=== PATIENT | female | born 1940 | race Caucasian/White ===

== ENCOUNTER → 2016-07-29 | Outpatient (CLI) | payer BC ==
[~2016-07-29] MED LIST: DIAZ-165 PO; DIPH-437 PO; LORA-763 PO; OXYC1TAB3 PO; PRED-301 PO; PRED20TA PO; TRAM-10 PO; VALA1TAB2 PO
[2016-08-01 15:51] LABS: ALBUMIN 3.5 G/DL (3.8-4.8); GAMMA GLOBULIN 0.5 G/DL (0.8-1.7); TOTAL PROTEIN 6.4 G/DL (6.2-8.3)
== END | disposition home or self-care (01) ==
LOC: C.LAB1850 08:58
PROVIDERS: ATTEND Internal Medicine Rheumatology
DX: M35.3 Polymyalgia rheumatica (principal); R70.0 Elevated erythrocyte sedimentation rate; T38.0X1A Poisoning by glucocorticoids and synthetic analogues, accidental (unintentional), initial encounter; E55.9 Vitamin D deficiency, unspecified; E61.8 Deficiency of other specified nutrient elements

== ENCOUNTER → 2016-08-05 | Outpatient (CLI) | payer BC | END | disposition home or self-care (01) | LOC: C.LAB1850 11:50 | PROVIDERS: ATTEND Internal Medicine Rheumatology | DX: M35.3 Polymyalgia rheumatica (principal); T38.0X1A Poisoning by glucocorticoids and synthetic analogues, accidental (unintentional), initial encounter; R77.8 Other specified abnormalities of plasma proteins; E61.8 Deficiency of other specified nutrient elements; E55.9 Vitamin D deficiency, unspecified ==

== ENCOUNTER → 2016-08-30 | Outpatient (CLI) | payer BC | END | disposition home or self-care (01) | LOC: C.MAMM 14:25 | PROVIDERS: ATTEND Internal Medicine Rheumatology | DX: M35.3 Polymyalgia rheumatica (principal); R70.0 Elevated erythrocyte sedimentation rate; T38.0X1A Poisoning by glucocorticoids and synthetic analogues, accidental (unintentional), initial encounter; E55.9 Vitamin D deficiency, unspecified; E61.8 Deficiency of other specified nutrient elements; M81.0 Age-related osteoporosis without current pathological fracture ==

== ENCOUNTER 2016-09-11 10:34 | Emergency (ER) | payer BC ==
[~2016-09-11] VITALS: Ht 156.2 cm; Wt 70.2 kg
[~2016-09-11 10:34] MED LIST changes: -DIAZ-165 PO; -OXYC1TAB3 PO; -PRED-301 PO; -PRED20TA PO; -TRAM-10 PO; -VALA1TAB2 PO
[2016-09-11 10:50] VITALS: TEMP 36.6; Ht 156.2 cm; Wt 70.2 kg
[2016-09-11] MEDS ORDERED: PRED-301 PO (11:19)
[2016-09-11] MEDS ORDERED: PRED20TA PO (11:19)
[2016-09-11] MEDS ORDERED: SODIUM CHLORIDE 0.9% 500ML 500 ML IV STA (12:10)
[2016-09-11] MEDS ORDERED: SODIUM CHLORIDE 0.9% 1000ML 1,000 ML IV STA (12:10)
[2016-09-11] MEDS ORDERED: ACETAMINOPHEN IV 650 MG in EMPTY BAG 0 ML IV ONE (12:15)
[2016-09-11] MEDS ORDERED: ACETAMINOPHEN 1000 MG/100 ML IV IV ONE (12:24)
--- NOTE | 2016-09-11 12:35 | EMERGENCY ROOM VISIT NOTE ---
History Report prepared by Jez: Sonal Smith Under the Supervision of: Dr. Karon Constantino M.D. First contact with patient: 11:47 Chief Complaint: BACK PAIN Stated Complaint: BACKACHE, CRAMPS History of Present Illness The patient is a 76 year old female who presents to the Emergency Room with complaints of intermittent lower back pain that started 3 days ago. The pain is worse on the left side of her back. She states that the pain is worse when lying flat. She describes the pain has an ache. The patient is also experiencing left-sided abdominal pain. The patient states that she typically has regular daily bowel movements. She states that her bowel movements are like "clockwork" and she doesn't usually have to strain when she goes. The patient states that she did not have a bowel movement 3 days ago or 2 days ago, which she thinks may be due to eating a banana before taking her medicine one morning. The patient states that she does not typically eat bananas. She drank milk of magnesia, apple juice, and prune juice yesterday and had a loose bowel movement afterward. The patient states that the bowel movement consisted of a lot of loose stool. She states that she had 2-3 bowel movements yesterday. The patient states that she is urinating normally and she denies any hematuria. She denies nausea, vomiting, rectal pain, and rectal bleeding. The patient states that she has polymyalgia rheumatica (PMR) and she is on 20 mg of prednisone in the morning and 5 mg at night. The patient states that she started prednisone 1 month ago. The patient adds that she might have pulled something when getting into her car the other day, but she is not convinced that is what is causing her pain. The patient denies any recent falls. The patient has never had a colonoscopy. Source of History: patient Onset: 3 days ago Position: back (lower) Quality: ache Timing: intermittent Modifying Factors (Worsening): other (lying flat) Associated Symptoms: + abdominal pain (left-sided), No nausea, No vomiting, No urinary symptoms (trouble urinating, hematuria) Note: no rectal pain, no rectal bleeding Review of Systems See HPI for pertinent positives & negatives. A total of 10 systems reviewed and were otherwise negative. Past Medical & Surgical Medical Problems: (1) Seasonal allergies Surgical Problems: (1) History of Family History Hypertension Social History Smoking Status: Former Smoker Drug Use: none Marital Status: Housing Status: lives alone Occupation Status: retired Current/Historical Medications Scheduled Prednisone (Prednisone), 5 MG PO QPM Prednisone (Prednisone), 20 MG PO QAM Scheduled PRN Tramadol (Ultram), 1 TABS PO Q6 PRN for Pain Allergies Coded Allergies: Magnesium (Unverified Allergy, Unknown, UNKNOWN, 09/11/16) Penicillins (Unverified Allergy, Unknown, UNKNOWN, 09/11/16) Sulfa Antibiotics (Unverified Adverse Reaction, Unknown, NAUSEA, 09/11/16) Physical Exam Vital Signs Date Time Temp Pulse Resp B/P (MAP) Pulse Ox O2 Delivery O2 Flow Rate FiO2 09/11/16 14:02 78 18 149/76 96 09/11/16 10:50 36.6 87 18 155/74 93 Room Air Physical Exam Vital signs reviewed. General: Well-appearing elderly female, in no significant distress. HEENT: No scleral icterus, PERRLA, neck supple. Atraumatic. Cardiovascular: Regular rate and rhythm, no extra sounds. Pulmonary: Clear to auscultation bilaterally, normal work of breathing. Abdomen: Soft, minimal left lower quadrant tender, nondistended, no rebound, no guarding, positive bowel sounds. Musculoskeletal: Atraumatic, minimal reproduction of tenderness to left flank above iliac crest, significant discomfort when lying flat, no peripheral edema. Neurologic: Patient awake alert and oriented x 3. Skin: Warm, dry, no rash Medical Decision & Procedures ER Provider Diagnostic Interpretation: CT results as stated below per my review and radiologist interpretation: ABDOMEN AND PELVIS CT WITHOUT CONTRAST FINDINGS: No renal or ureteral stones. No hydronephrosis. Mild bladder wall thickening which could be due to underdistention. The uterus and bilateral adnexa are unremarkable. Suboptimal evaluation for bowel pathology due to the lack of intravenous and oral contrast. However, there is no definite bowel wall thickening or obstruction. Mild elevation of the left hemidiaphragm. Colonic diverticulosis. Normal appendix. There is an acute superior endplate compression fracture at L2 demonstrating minimal loss of height. No associated retropulsion. A few sacral Tarlov cysts. A 1.3 cm hypodense lesion within the right hepatic lobe. This is incompletely characterize on this noncontrast study but favors a cyst. The gallbladder, spleen, and adrenal glands are unremarkable. A 6.4 cm cyst within the upper pole the right kidney. Normal pancreas. No retroperitoneal lymphadenopathy. IMPRESSION: 1. No renal stones or hydronephrosis. 2. Mild bladder wall thickening which could be due to underdistention. Recommend correlation with urinalysis. 3. An acute superior endplate compression fracture at L2 demonstrating minimal loss of height. Electronically signed by: Kiran Chaudhry M.D. 09/11/2016 1:07 PM Dictated Date/Time: 09/11/2016 12:59 PM Laboratory Results 09/11/16 12:25 Red Blood Count 4.73, Mean Corpuscular Volume 95.6, Mean Corpuscular Hemoglobin 31.3, Mean Corpuscular Hemoglobin Concent 32.7, Mean Platelet Volume 9.4, Neutrophils (%) (Auto) 92.3, Lymphocytes (%) (Auto) 3.1, Monocytes (%) (Auto) 3.6, Eosinophils (%) (Auto) 0.0, Basophils (%) (Auto) 0.0, Neutrophils # (Auto) 12.07, Lymphocytes # (Auto) 0.41, Monocytes # (Auto) 0.47, Eosinophils # (Auto) 0.00, Basophils # (Auto) 0.00 09/11/16 12:25 Test 09/11/16 11:45 09/11/16 12:25 Urine Color DK YELLOW Urine Appearance CLEAR (CLEAR) Urine pH 6.5 (4.5-7.5) Urine Specific [place] 1.021 (1.000-1.030) Urine Protein NEG (NEG) Urine Glucose (UA) NEG (NEG) Urine Ketones 1+ (NEG) Urine Occult Blood NEG (NEG) Urine Nitrite NEG (NEG) Urine Bilirubin NEG (NEG) Urine Urobilinogen NEG (NEG) Urine Leukocyte Esterase TRACE (NEG) Urine WBC (Auto) 1-5 /hpf (0-5) Urine RBC (Auto) 5-10 /hpf (0-4) Urine Hyaline Casts (Auto) 1-5 /lpf (0-5) Urine Epithelial Cells (Auto) >30 /lpf (0-5) Urine Bacteria (Auto) NEG (NEG) White Blood Count 13.08 K/uL (4.8-10.8) Red Blood Count 4.73 M/uL (4.2-5.4) Hemoglobin 14.8 g/dL (12.0-16.0) Hematocrit 45.2 % (37-47) Mean Corpuscular Volume 95.6 fL (80-100) Mean Corpuscular Hemoglobin 31.3 pg (25-34) Mean Corpuscular Hemoglobin Concent 32.7 g/dl (32-36) Platelet Count 331 K/uL (130-400) Mean Platelet Volume 9.4 fL (7.4-10.4) Neutrophils (%) (Auto) 92.3 % Lymphocytes (%) (Auto) 3.1 % Monocytes (%) (Auto) 3.6 % Eosinophils (%) (Auto) 0.0 % Basophils (%) (Auto) 0.0 % Neutrophils # (Auto) 12.07 K/uL (1.4-6.5) Lymphocytes # (Auto) 0.41 K/uL (1.2-3.4) Monocytes # (Auto) 0.47 K/uL (0.11-0.59) Eosinophils # (Auto) 0.00 K/uL (0-0.5) Basophils # (Auto) 0.00 K/uL (0-0.2) RDW Standard Deviation 53.9 fL (36.4-46.3) RDW Coefficient of Variation 15.5 % (11.5-14.5) Immature Granulocyte % (Auto) 1.0 % Immature Granulocyte # (Auto) 0.13 K/uL (0.00-0.02) Anion Gap 9.0 mmol/L (3-11) Est Creatinine Clear Calc Drug Dose 49.7 ml/min Estimated GFR () 73.0 Estimated GFR (Non- 63.0 BUN/Creatinine Ratio 14.0 (10-20) Calcium Level 9.0 mg/dl (8.5-10.1) Total Bilirubin 0.7 mg/dl (0.2-1) Direct Bilirubin 0.2 mg/dl (0-0.2) Aspartate Amino Transf (AST/SGOT) 18 U/L (15-37) Alanine Aminotransferase (ALT/SGPT) 31 U/L (12-78) Alkaline Phosphatase 94 U/L (45-117) Total Protein 7.3 gm/dl (6.4-8.2) Albumin 3.7 gm/dl (3.4-5.0) Laboratory results per my review. Medications Administered Medications (Trade) Dose Ordered Sig/Ban Route Start Time Stop Time Status Last Admin Dose Admin Sodium Chloride 500 ml @ 999 mls/hr Q31M STAT IV 09/11/16 12:10 09/11/16 12:40 DC 09/11/16 12:28 999 MLS/HR Sodium Chloride 1,000 ml @ 125 mls/hr Q8H STAT IV 09/11/16 12:10 09/11/16 14:36 DC 09/11/16 12:40 125 MLS/HR Acetaminophen 650 mg/Empty Bag 65 ml @ 260 mls/hr NOW ONCE IV 09/11/16 12:15 09/11/16 12:29 DC 09/11/16 12:37 260 MLS/HR ED Course 1204: Past medical records reviewed. The patient was evaluated in room A10. A complete history and physical examination was performed. 1210: Ordered Sodium Chloride 1000 ml @ 125 mls/hr IV, Sodium Chloride 500 ml @ 999 mls/hr IV 1215: Ordered Acetaminophen 650 mg/Empty Bag 65 ml @ 260 mls/hr IV 1354: Upon reevaluation, the patient appeared to have improvement of her symptoms. I discussed findings with her. She verbalized agreement of the treatment plan. She was discharged home. Medical Decision Differentials include renal colic, appendicitis, diverticulitis, mesenteric ischemia, aortic pathology, infections, inflammatory bowel disease, PUD, biliary pathology, UTI. Medication Reconciliation: I attest that I have personally reviewed the patient' s current medication list. Blood Pressure Screening: Patient was found to have an elevated blood pressure and was referred to their primary doctor for recheck and further treatment. This patient was evaluated and appeared to be in no significant distress. IV access was obtained and laboratory work was drawn. The patient was placed on the record label internship and found to be in a normal sinus rhythm. She was medicated with IV Tylenol. CT scan was performed of the abdomen and pelvis which is significant for an L2 compression fracture. There is no significant loss of height, there is a superior endplate deformity. Urinalysis is negative. I suspect this is the etiology of the patient's discomfort, it may be a radiculopathy. The patient was discharged with a prescription for when necessary Ultram. She will follow-up with her physician as well as orthopedic spine for reevaluation. She will return to the ER for worsening of symptoms or any medical concerns. Impression Primary Impression: Compression fracture of L2 Scribe Attestation The scribe's documentation has been prepared under my direction and personally reviewed by me in its entirety. I confirm that the note above accurately reflects all work, treatment, procedures, and medical decision making performed by me. Departure Information Dispostion Home / Self-Care Prescriptions Tramadol (Ultram) 50 Mg Tab 1 TABS PO Q6 Y for Pain, #20 TAB Prov: Karon Constantino M.D. 09/11/16 Referrals No Doctor, Assigned (PCP) Forms HOME CARE DOCUMENTATION FORM, IMPORTANT VISIT INFORMATION Patient Instructions [facility] Additional Instructions Diagnosis: L2 compression fracture Tylenol 650 mg every 6 hours as needed for pain. Ultram 50 mg every 6 hours as needed for more severe pain. Follow-up with your primary care physician and he will likely require evaluation by orthopedic spine, Dr. Campbell. Please see his information below. Return to the emergency department for worsening of symptoms or any medical concerns. Problem Qualifiers Primary Impression: Compression fracture of L2 Encounter type: initial encounter Fracture type: closed Qualified Codes: S32.020A - Wedge compression fracture of second lumbar vertebra, initial encounter for closed fracture
[2016-09-11 12:55] LABS: COMPLETE YES; HEMATOCRIT 45.2 % (37-47); LYMPH % 3.1 %; LYMPH ABS # 0.41 K/uL (1.2-3.4); MEAN CELL VOLUME 95.6 fL (80-100); MEAN CORPUSCULAR HEMOGLOBIN 31.3 pg (25-34); MEAN CORPUSCULAR HGB CONC 32.7 g/dl (32-36); MEAN PLATELET VOLUME 9.4 fL (7.4-10.4); MONO % 3.6 %; NEUT % 92.3 %; PLATELET COUNT 331 K/uL (130-400); RED BLOOD COUNT 4.73 M/uL (4.2-5.4); WHITE BLOOD COUNT 13.08 K/uL (4.8-10.8)
[2016-09-11 12:58] LABS: URINE APPEARANCE CLEAR (CLEAR); URINE COLOR DK YELLOW; URINE EPITHELIAL CELL AUTO >30 /lpf (0-5); URINE NITRITE NEG (NEG); URINE PH 6.5 (4.5-7.5); URINE SPECIFIC GRAVITY 1.021 (1.000-1.030); UROBILINOGEN NEG (NEG); ZZUR CULT IF INDIC CLEAN CATCH NO
[2016-09-11 13:04] LABS: CREATININE 0.9 mg/dl (0.60-1.20)
[2016-09-11 13:06] LABS: MANUAL MICROSCOPIC REQUIRED? NO; REVIEW REQ? NO; URINE BILIRUBIN NEG (NEG)
--- NOTE | 2016-09-11 13:08 | DIAGNOSTIC IMAGING REPORT ---
ABDOMEN AND PELVIS CT WITHOUT CONTRAST CT DOSE: 325.79 mGy.cm HISTORY: Left flank pain, stone TECHNIQUE: Multiaxial CT images of the abdomen and pelvis were performed without contrast. COMPARISON STUDY: None. FINDINGS: No renal or ureteral stones. No hydronephrosis. Mild bladder wall thickening which could be due to underdistention. The uterus and bilateral adnexa are unremarkable. Suboptimal evaluation for bowel pathology due to the lack of intravenous and oral contrast. However, there is no definite bowel wall thickening or obstruction. Mild elevation of the left hemidiaphragm. Colonic diverticulosis. Normal appendix. There is an acute superior endplate compression fracture at L2 demonstrating minimal loss of height. No associated retropulsion. A few sacral Tarlov cysts. A 1.3 cm hypodense lesion within the right hepatic lobe. This is incompletely characterize on this noncontrast study but favors a cyst. The gallbladder, spleen, and adrenal glands are unremarkable. A 6.4 cm cyst within the upper pole the right kidney. Normal pancreas. No retroperitoneal lymphadenopathy. IMPRESSION: 1. No renal stones or hydronephrosis. 2. Mild bladder wall thickening which could be due to underdistention. Recommend correlation with urinalysis. 3. An acute superior endplate compression fracture at L2 demonstrating minimal loss of height. Electronically signed by: Kiran Chaudhry M.D. 09/11/2016 1:07 PM Dictated Date/Time: 09/11/2016 12:59 PM
[2016-09-11] MEDS ORDERED: TRAM-10 PO (13:39)
[2016-09-11 14:02] VITALS: BP 149/76; PULSE 78; O2SAT 96
== END 2016-09-11 14:04 | disposition home or self-care (01) ==
LOC: C.EDB 10:35 → C.EDA 14:04
DX: M48.56XA Collapsed vertebra, not elsewhere classified, lumbar region, initial encounter for fracture (principal); Z87.891 Personal history of nicotine dependence; Z88.0 Allergy status to penicillin; Z88.2 Allergy status to sulfonamides; Z88.8 Allergy status to other drugs, medicaments and biological substances; Z82.49 Family history of ischemic heart disease and other diseases of the circulatory system

== ENCOUNTER 2016-09-13 10:17 | Emergency (ER) | payer BC ==
[~2016-09-13] VITALS: Ht 156.2 cm; Wt 70.0 kg
[~2016-09-13 10:17] MED LIST changes: -DIPH-437 PO; -LORA-763 PO; +PRED-301 PO; +PRED20TA PO; +TRAM-10 PO
[2016-09-13 10:23] VITALS: BP 166/82; PULSE 97; TEMP 36.7; O2SAT 92; Ht 156.2 cm; Wt 70.0 kg
[2016-09-13] MEDS ORDERED: OXYC1TAB3 PO (11:30)
[2016-09-13] MEDS ORDERED: VALA1TAB2 PO (11:30)
--- NOTE | 2016-09-13 11:33 | EMERGENCY ROOM VISIT NOTE ---
History Report prepared by Jez: Bere Munson Under the Supervision of: Dr. Zaire Grace M.D. First contact with patient: 10:49 Chief Complaint: BACK PAIN Stated Complaint: BACK PAIN History of Present Illness The patient is a 76 year old female who presents to the Emergency Room with complaints of an episode of back pain starting a few days ago. She reports that she came to the ED two days ago and had a CT scan performed. She states that they found a compression fracture. The patient reports that Tylenol is no relief. She reports that the pain is in her hips and buttocks. The patient reports that standing and using a heating pad helps relieve the pain. She reports that sitting makes the pain worse. She denies pain in her legs, urinary symptoms, and weakness. The patient notes a history of sciatica. Source of History: patient Onset: few days ago Position: back Timing: other (episode) Modifying Factors (Worsening): other (sitting) Modifying Factors (Relieving): heat, other (standing) Associated Symptoms: No urinary symptoms, No weakness Note: The patient complains of the pain in her hips and buttocks. The patient denies pain in her legs. Review of Systems See HPI for pertinent positives & negatives. A total of 10 systems reviewed and were otherwise negative. Past Medical & Surgical Medical Problems: (1) Sciatica (2) Seasonal allergies Surgical Problems: (1) History of Family History Hypertension Social History Smoking Status: Former Smoker Drug Use: none Marital Status: Housing Status: lives alone Occupation Status: retired Current/Historical Medications Scheduled Prednisone (Prednisone), 5 MG PO QPM Prednisone (Prednisone), 20 MG PO QAM Valacyclovir Hcl (Valtrex), 1,000 MG PO TID Scheduled PRN Oxycodone Immediate Rel Tab (Roxicodone Ir), 1-2 TAB PO Q4H PRN for Severe Pain Allergies Coded Allergies: Vitamin D (Unverified Allergy, Severe, VOMITING, 09/13/16) Magnesium (Unverified Allergy, Unknown, UNKNOWN, 09/13/16) Penicillins (Unverified Allergy, Unknown, UNKNOWN, 09/13/16) Sulfa Antibiotics (Unverified Adverse Reaction, Unknown, NAUSEA, 09/13/16) Physical Exam Vital Signs Date Time Temp Pulse Resp B/P (MAP) Pulse Ox O2 Delivery O2 Flow Rate FiO2 09/13/16 10:23 36.7 97 18 166/82 92 Room Air Physical Exam GENERAL: Patient is uncomfortable appearing and in mild distress. HEENT: No acute trauma, normocephalic atraumatic, mucous membranes moist, no nasal congestion, no scleral icterus. NECK: No stridor, no adenopathy, no meningismus, trachea is midline. LUNGS: No dyspnea. Clear to auscultation and equal bilaterally. No wheeze, no rhonchi. HEART: Regular rate and rhythm. No murmurs, rubs, gallops appreciated. ABDOMEN: Soft, nontender, bowel sounds positive, no masses appreciated, no peritonitis. BACK: No midline tenderness, no CVA tenderness EXTREMITIES: Normal motion all extremities, no cyanosis, no edema. NEUROLOGIC: Alert and oriented, no acute motor or sensory deficits, no focal weakness, cranial nerves grossly intact. SKIN: no jaundice, no diaphoresis, dermatomal blistering from lumbar spine midline to left extending over left buttock, does not involve genital region, has areas of scratching of mid lumbar spine. Medical Decision & Procedures Medications Administered Medications (Trade) Dose Ordered Sig/Ban Route Start Time Stop Time Status Last Admin Dose Admin Valacyclovir HCl (Valtrex Tab) 1,000 mg NOW ONCE PO 09/13/16 11:15 09/13/16 11:16 DC 09/13/16 11:13 1,000 MG ED Course 1050: The patient was evaluated in room C6. A complete history and physical exam was performed. 1115: Ordered Valtrex Tab 1000 mg PO. 1143: Reevaluated the patient. Discussed results and discharge instructions: She verbalized understanding and agreement. The patient is ready for discharge. Medical Decision Medication Reconciliation: I attest that I have personally reviewed the patient 's current medication list. Blood pressure screening: Patient was found to have an elevated blood pressure and was referred to their primary doctor for recheck and further treatment. Differential: Musculoskeletal, Disc Herniation, Fracture, Cord Compression, Discitis, Infectious, Aortic Pathology, Renal Colic, UTI/Pyelonephritis, Acute Exacerbation of Chronic Pain, Sciatica, Cauda Equina, Shingles amongst other pathologies entertained. 76 yr old female arrives with left low back pain radiating to buttock. Ongoing last few days. She has no neuro deficits, ambulates without difficulty and denies urinary/bowel control issues. She by exam has small areas of blistering very much looking like early shingles across low left back and left buttock. Does not cross midline nor does it involve region. She by examination and her story has acute shingles. She is not convinced that rash is not just kong from heating pad, though they do not have typical appearance of contact dermatitis nor thermal burn. That said, treatment in patient is Valtrex and pain medications. I would not increase her typical 20mg Prednisone at this time given concern this is shingles. She does not have systemic symptoms. She is leaning towards having Emergent MRI done, however she does not at this time meet criteria and I counseled her my concern of as study like this not being covered. She understands and agrees with plan to monitor as outpatient. Of note, review of labs from a few days ago reveals normal renal function. Patient understands symptoms requiring immediate return. I advised she follow up with PCP to discuss rash, pain, and HTN in very near future. Impression Primary Impression: Shingles Additional Impression: Low back pain Scribe Attestation The scribe's documentation has been prepared under my direction and personally reviewed by me in its entirety. I confirm that the note above accurately reflects all work, treatment, procedures, and medical decision making performed by me. Departure Information Dispostion Home / Self-Care Prescriptions Valacyclovir Hcl (VALTREX) 1 Gm Tab 1000 MG PO TID for 7 Days, #21 TAB Prov: Zaire Grace M.D. 09/13/16 Oxycodone Immediate Rel Tab (ROXICODONE IR) 5 Mg Tab 1-2 TAB PO Q4H Y for Severe Pain, #20 TAB Prov: Zaire Grace M.D. 09/13/16 Referrals Jonelle Samuels C.R.N.P. (PCP) Forms HOME CARE DOCUMENTATION FORM, IMPORTANT VISIT INFORMATION Patient Instructions [facility] Additional Instructions You have received a narcotic pain medication prescription. These medications may cause drowsiness and should not be used with other sedative medications. Do not drive, drink alcohol, perform dangerous activities, nor make important decisions after taking these medications. FPC use or inappropriate use may lead to addiction. These medications may cause constipation. It is very important that you follow up with your primary care provider to have repeat evaluation in the next few days to review if this is worsening or not and whether MRI indicated. Return if worsening pain, weakness in legs, loss of bowel/bladder control or other concerns. Problem Qualifiers
== END 2016-09-13 11:43 | disposition home or self-care (01) ==
LOC: C.EDB 10:19 → C.EDC 11:43
DX: B02.9 Zoster without complications (principal); M54.5 Low back pain; M54.40 Lumbago with sciatica, unspecified side; Z87.891 Personal history of nicotine dependence

== ENCOUNTER → 2016-09-19 | Outpatient (CLI) | payer BC ==
[~2016-09-19] MED LIST changes: +DIAZ-165 PO; +OXYC1TAB3 PO; -TRAM-10 PO; +VALA1TAB2 PO
--- NOTE | 2016-09-19 10:13 | DIAGNOSTIC IMAGING REPORT ---
LUMBAR SPINE MIN 4 VIEWS CLINICAL HISTORY: Lower back pain. COMPARISON: CT of the abdomen and pelvis September 11, 2016. FINDINGS: Mild loss of height of the superior endplate of L2 is similar to CT of September 11, 2016. This suggests an acute to subacute compression fracture. No additional compression fractures are present. There is mild multilevel degenerative disc disease and moderate multilevel facet arthrosis. IMPRESSION: 1. Mild L2 compression fracture which is similar to CT of September 11, 2016 and is likely acute to subacute. 2. Mild to moderate multilevel degenerative disc disease and facet arthrosis. Electronically signed by: Tristan Desai M.D. 09/19/2016 10:12 AM Dictated Date/Time: 09/19/2016 10:10 AM
== END | disposition home or self-care (01) ==
LOC: C.RDSM 12:02
PROVIDERS: ATTEND Family Medicine
DX: M51.36 Other intervertebral disc degeneration, lumbar region (principal); M48.56XA Collapsed vertebra, not elsewhere classified, lumbar region, initial encounter for fracture

== ENCOUNTER → 2016-09-29 | Outpatient (CLI) | payer BC ==
[~2016-09-29] MED LIST changes: -DIAZ-165 PO; -VALA1TAB2 PO
--- NOTE | 2016-09-29 09:50 | DIAGNOSTIC IMAGING REPORT ---
LUMBAR SPINE W/O CONTRAST HISTORY:76 yearsFemaleLOW BACK PAIN LATEX ALLERGY COMPARISON: Lumbar spine radiographs 09/19/2016, abdomen and pelvis CT 09/11/2016. TECHNIQUE: Axial and sagittal T1 and T2 noncontrast images of the lumbar spine were obtained. FINDINGS: 20% anterior endplate compression deformity of the L2 vertebral body is again seen with a linear fracture line of decreased T1 and increased T2/STIR signal best seen on image 8 of the sagittal STIR sequence. There is no significant retropulsion. The morphology of the vertebral body appears to be unchanged from comparison lumbar spine radiographs dated 09/19/[address] study dated 09/11/2016. This appears to be subacute in nature. No additional compression deformities are identified. Multiple Schmorl's nodes and endplate spurring is noted in conjunction with facet arthrosis intervertebral disc space narrowing. The conus medullaris terminates at the L1-L2 level. There is a suggested perineural root sleeve cyst level of the mid sacrum not imaged on the axial set measuring up to 1.4 x 4.0 cm in AP and craniocaudal dimensions respectively. The imaged intra-abdominal, intrapelvic and paraspinal structures demonstrate no gross abnormal. There appears to be an extrarenal pelvis on the left. T12-L1: No central canal or neuroforaminal narrowing on the sagittal imaging alone. L1-L2: Small circumferential annular disc bulge with spondylitic spurring and facet arthropathy. No central canal or foraminal narrowing. L2-L3: Circumferential annular disc bulge with posterior spondylitic spurring and moderate facet arthropathy causes mild central canal and mild right foraminal narrowing. The left neuroforamen appears patent. L3-L4: Broad-based posterior disc bulge with spondylitic spurring, ligamentum flavum redundancy and moderate to severe facet arthrosis causes mild to moderate central canal and mild bilateral foraminal narrowing. L4-L5: Disc desiccation, intervertebral disc space narrowing, ligamentum flavum redundancy and mild to moderate facet arthrosis without central canal or foraminal narrowing. L5-S1: Moderate intervertebral disc space narrowing with posterior spondylitic spurring and facet arthrosis is present conjunction with a broad-based left foraminal and extraforaminal disc protrusion which causes moderate left foraminal narrowing. The central canal and right foramen appear patent. IMPRESSION: 1. Subacute compression fracture of the L2 vertebral body is again seen involving the superior endplate causing approximately 20% compression anteriorly. No significant retropulsion or high-grade central canal narrowing. 2. Multilevel discogenic degeneration and facet arthrosis as above. Findings are most pronounced at the L3-L4 level where there is resultant mild to moderate central canal and mild bilateral foraminal narrowing. 3. At L2-L3 there is mild central canal and mild right foraminal stenosis. The above report was generated using voice recognition software. It may contain grammatical, syntax or spelling errors. Electronically signed by: Clyde Szymanski 09/29/2016 9:48 AM Dictated Date/Time: 09/29/2016 9:35 AM
== END | disposition home or self-care (01) ==
LOC: C.MRIBC 08:43
PROVIDERS: ATTEND Family Medicine
DX: M48.06 Spinal stenosis, lumbar region (principal); M48.56XA Collapsed vertebra, not elsewhere classified, lumbar region, initial encounter for fracture

== ENCOUNTER → 2016-10-03 | Outpatient (CLI) | payer BC | END | disposition home or self-care (01) | LOC: C.LAB1850 13:46 | PROVIDERS: ATTEND Internal Medicine Rheumatology | DX: M35.3 Polymyalgia rheumatica (principal); T38.0X1A Poisoning by glucocorticoids and synthetic analogues, accidental (unintentional), initial encounter; X58.XXXA Exposure to other specified factors, initial encounter; E55.9 Vitamin D deficiency, unspecified ==

== ENCOUNTER → 2016-10-31 | Outpatient (CLI) | payer BC | END | disposition home or self-care (01) | LOC: C.LAB1850 12:07 | PROVIDERS: ATTEND Internal Medicine Rheumatology | DX: M35.3 Polymyalgia rheumatica (principal); T38.0X1A Poisoning by glucocorticoids and synthetic analogues, accidental (unintentional), initial encounter; E55.9 Vitamin D deficiency, unspecified; Z79.52 Long term (current) use of systemic steroids ==

== ENCOUNTER → 2016-12-06 | Outpatient (CLI) | payer BC | END | disposition home or self-care (01) | LOC: C.LAB1850 12:11 | PROVIDERS: ATTEND Internal Medicine Rheumatology | DX: M35.3 Polymyalgia rheumatica (principal); T38.0X1A Poisoning by glucocorticoids and synthetic analogues, accidental (unintentional), initial encounter; Z79.52 Long term (current) use of systemic steroids ==

== ENCOUNTER 2017-01-10 10:03 | Emergency (ER) | payer BC ==
[~2017-01-10] VITALS: Ht 154.9 cm; Wt 74.1 kg
[2017-01-10 10:08] VITALS: TEMP 36.6; Ht 154.9 cm; Wt 74.1 kg
[2017-01-10] MEDS ORDERED: ACETAMINOPHEN 500 MG TAB PO STA (10:24)
--- NOTE | 2017-01-10 10:30 | EMERGENCY ROOM VISIT NOTE ---
History Report prepared by Jez: Lian Carney Under the Supervision of: Dr. Charlie Scott M.D. First contact with patient: 10:18 Chief Complaint: BACK PAIN Stated Complaint: BACK SPASM History of Present Illness The patient is a 76 year old female who presents to the Emergency Room with complaints of persistent diffuse back pain that began three days ago. She currently rates her discomfort as a 10/10 in severity. The patient states that five months ago she was diagnosed with Polymyalgia Rheumatica and Arthritis, noting that she has been on high doses of steroids recently. The patient states that Monday evening she developed a tightness in her back. She states that she woke up in the morning with worsened pain. The patient states that she felt like she slept on her back wrong. She states that she then began developing back spasms. The patient states that her pain is worsened with walking. She states that she has a history of sciatica. The patient states that she has tried using Ibuprofen and Naproxen for her discomfort, noting that Ibuprofen helped alleviate her symptoms more. She denies any recent fall, fever , or urinary symptoms. Source of History: patient Onset: three days ago Position: back (diffuse) Symptom Intensity: 10/10 Quality: other (tightness, spasm) Timing: other (persistent) Modifying Factors (Worsening): other (walking) Associated Symptoms: No fevers, No urinary symptoms Review of Systems See HPI for pertinent positives & negatives. A total of 10 systems reviewed and were otherwise negative. Past Medical & Surgical Medical Problems: (1) Sciatica (2) Seasonal allergies Surgical Problems: (1) History of Family History Hypertension Social History Smoking Status: Former Smoker Drug Use: none Marital Status: Housing Status: lives alone Occupation Status: retired Current/Historical Medications Scheduled Prednisone (Prednisone), 12.5 MG PO DAILY Scheduled PRN Diazepam (Valium), 5 MG PO Q6H PRN for Muscle Spasms Allergies Coded Allergies: Vitamin D (Unverified Allergy, Severe, VOMITING, 01/10/17) Magnesium (Unverified Allergy, Unknown, UNKNOWN, 01/10/17) Penicillins (Unverified Allergy, Unknown, UNKNOWN, 01/10/17) Sulfa Antibiotics (Unverified Adverse Reaction, Unknown, NAUSEA, 01/10/17) Physical Exam Vital Signs Date Time Temp Pulse Resp B/P (MAP) Pulse Ox O2 Delivery O2 Flow Rate FiO2 01/10/17 11:56 89 20 113/77 98 Room Air 01/10/17 10:08 36.6 100 20 162/99 94 Room Air Physical Exam GENERAL: Patient is in no acute distress. HEENT: No acute trauma, normocephalic atraumatic, mucous membranes moist, no nasal congestion, no scleral icterus. NECK: No stridor, no adenopathy, no meningismus, trachea is midline. LUNGS: Clear to auscultation bilaterally, no wheeze, no rhonchi, breath sounds equal. HEART: Without murmurs gallops or rubs, regular rate and rhythm. ABDOMEN: Soft, nontender, bowel sounds positive, no hernias, no peritonitis. BACK: Tender diffusely in the lumbar area, but primarily over the right lumbar musculature, no gabriela step-off. EXTREMITIES: No cyanosis or edema, full range of motion of all the joints without pain or difficulty, no signs for acute trauma. NEUROLOGIC: Oriented x 3, no acute motor or sensory deficits, no focal weakness. SKIN: No rash, no jaundice, no diaphoresis. Medical Decision & Procedures ER Provider Diagnostic Interpretation: Radiology results as stated below per my review and radiologist interpretation: THORACIC SPINE 3 VIEWS ROUTINE CLINICAL HISTORY: Back pain. COMPARISON STUDY: No previous studies for comparison. FINDINGS: Elevation of the left hemidiaphragm is unchanged since CT of September 11, 2016. There is a suspected mild compression fracture of T10. There may be a minimal compression fracture of T7. There is a severe compression fracture of T4. IMPRESSION: Severe T4 compression fracture, mild T10 compression fracture and possible minimal T7 compression fracture. These fractures are age indeterminate. Electronically signed by: Tristan Desai M.D. 01/10/2017 11:10 AM Dictated Date/Time: 01/10/2017 11:06 AM LUMBAR SPINE 5 VIEWS CLINICAL HISTORY: Chronic low back pain. FINDINGS: Five views of the lumbar spine are compared to study dated 09/19/2016. The skeletal structures are osteopenic. There is no radiographic evidence of acute fracture or malalignment. There is a mild chronic superior endplate compression deformity of L2. Vertebral body height is otherwise maintained throughout the lumbar spine. Alignment is preserved. Anterior osteophytes are seen throughout. The transverse and spinous processes are intact as visualized. There is no evidence of spondylolysis. Moderate to advanced disc space narrowing is seen at L5-S1. Mild to moderate disc space narrowing is seen at the remaining lumbar levels. Facet arthropathy is seen in the mid to lower lumbar region. The bony pelvis is intact as visualized. There is a nonobstructed abdominal bowel gas pattern. Atherosclerotic calcification is seen in the abdominal aorta. IMPRESSION: 1. No acute bony abnormality is seen involving the lumbar spine. 2. Osteopenia, a chronic compression deformity of L2, and spondylotic change as above. This is similar to previous previous. Dictated: 01/10/2017 11:06 AM Transcribed: 01/10/2017 11:25 AM [email or web address] Electronically signed by: Charlie Moser M.D. 01/10/2017 11:32 AM Dictated Date/Time: 01/10/2017 11:06 AM Laboratory Results Urine dip is negative for infection or blood Medications Administered Medications (Trade) Dose Ordered Sig/Ban Route Start Time Stop Time Status Last Admin Dose Admin Acetaminophen (Tylenol Tab) 1,000 mg NOW STAT PO 01/10/17 10:24 01/10/17 10:25 DC 01/10/17 11:01 1,000 MG ED Course 1019: The patient was evaluated in room C3. A complete history and physical exam was performed. 1024: Ordered Tylenol Tab 1000 mg PO. 1147: I reevaluated the patient and she is resting. I discussed the test results and the possibility of a CT scan. She does not wish to have a CT scan. She would like to go home. She verbalized complete understanding and agreement. She is ready to go home. Medical Decision The patient is a 76 year old female who presents to the ED with complaints of back pain. Differential diagnoses considered include Muscle spasm, compression fracture, arthritis, UTI, renal colic, shingles. Patient presents with mid to lower back pain. She was asking for possibly Valium which has helped with some back spasms before. Films of the thoracic and lumbar spine show compression fractures, some significant compression fractures were seen in the thoracic area. Urine dip shows no blood or infection. The patient denies fever. There is no evidence for neurovascular compromise from the compression fractures. I talked to the patient about performing a CT of the thoracic spine to evaluate the more severe compression fractures. Whether they were acute or chronic was not clear by plain x-ray. The patient did not want to undergo the CT scan. She states that she will talk with her family doctor's office about getting things performed as an outpatient. The patient was given oral Tylenol during her stay. She will be discharged with [id number] pain meds, Valium for muscle spasm. She will follow with her doctor as an outpatient. She has agreed to return here for worsening pain or symptoms. [place] Drug Monitoring Program Search Results: patient reviewed within database, no issues identified Medication Reconcilliation Current Medication List: was personally reviewed by me Blood Pressure Screening Patient's blood pressure: Elevated blood pressure Blood pressure disposition: Elevated BP felt to be situational, Did not require urgent referral Impression Primary Impression: Lumbar back pain Additional Impression: Compression fracture Scribe Attestation The scribe's documentation has been prepared under my direction and personally reviewed by me in its entirety. I confirm that the note above accurately reflects all work, treatment, procedures, and medical decision making performed by me. Departure Information Dispostion Home / Self-Care Prescriptions Diazepam (Valium) 5 Mg Tab 5 MG PO Q6H Y for Muscle Spasms, #10 TAB Prov: Charlie Scott M.D. 01/10/17 Referrals Ronaldo Nice ., PharmD Forms HOME CARE DOCUMENTATION FORM, IMPORTANT VISIT INFORMATION Patient Instructions My [facility] Additional Instructions talk with your doctor about the thoracic CT scan we discussed may use ibuprofen and tylenol for pain valium 1 tab every 6 hours for muscle spasm--no driving or alcohol with this med return for worsening symptoms Problem Qualifiers
--- NOTE | 2017-01-10 11:11 | DIAGNOSTIC IMAGING REPORT ---
THORACIC SPINE 3 VIEWS ROUTINE CLINICAL HISTORY: Back pain. COMPARISON STUDY: No previous studies for comparison. FINDINGS: Elevation of the left hemidiaphragm is unchanged since CT of September 11, 2016. There is a suspected mild compression fracture of T10. There may be a minimal compression fracture of T7. There is a severe compression fracture of T4. IMPRESSION: Severe T4 compression fracture, mild T10 compression fracture and possible minimal T7 compression fracture. These fractures are age indeterminate. Electronically signed by: Tristan Desai M.D. 01/10/2017 11:10 AM Dictated Date/Time: 01/10/2017 11:06 AM
--- NOTE | 2017-01-10 11:25 | DIAGNOSTIC IMAGING REPORT ---
LUMBAR SPINE 5 VIEWS CLINICAL HISTORY: Chronic low back pain. FINDINGS: Five views of the lumbar spine are compared to study dated 09/19/2016. The skeletal structures are osteopenic. There is no radiographic evidence of acute fracture or malalignment. There is a mild chronic superior endplate compression deformity of L2. Vertebral body height is otherwise maintained throughout the lumbar spine. Alignment is preserved. Anterior osteophytes are seen throughout. The transverse and spinous processes are intact as visualized. There is no evidence of spondylolysis. Moderate to advanced disc space narrowing is seen at L5-S1. Mild to moderate disc space narrowing is seen at the remaining lumbar levels. Facet arthropathy is seen in the mid to lower lumbar region. The bony pelvis is intact as visualized. There is a nonobstructed abdominal bowel gas pattern. Atherosclerotic calcification is seen in the abdominal aorta. IMPRESSION: 1. No acute bony abnormality is seen involving the lumbar spine. 2. Osteopenia, a chronic compression deformity of L2, and spondylotic change as above. This is similar to previous previous. Dictated: 01/10/2017 11:06 AM Transcribed: 01/10/2017 11:25 AM [email or web address] Electronically signed by: Charlie Moser M.D. 01/10/2017 11:32 AM Dictated Date/Time: 01/10/2017 11:06 AM
[2017-01-10] MEDS ORDERED: PRED-301 PO (11:44)
[2017-01-10 11:56] VITALS: BP 113/77; PULSE 89; O2SAT 98
[2017-01-10] MEDS ORDERED: DIAZ-165 PO (11:56)
== END 2017-01-10 12:12 | disposition home or self-care (01) ==
LOC: C.EDB 10:05 → C.EDC 12:12
DX: S22.040A Wedge compression fracture of fourth thoracic vertebra, initial encounter for closed fracture (principal); X58.XXXA Exposure to other specified factors, initial encounter; Z82.49 Family history of ischemic heart disease and other diseases of the circulatory system; Z87.891 Personal history of nicotine dependence

== ENCOUNTER → 2017-03-07 | Outpatient (CLI) | payer BC ==
[~2017-03-07] MED LIST changes: +DIAZ-165 PO; -OXYC1TAB3 PO; -PRED20TA PO
== END | disposition home or self-care (01) ==
LOC: C.LAB1850 14:30
PROVIDERS: ATTEND Internal Medicine Rheumatology
DX: M35.3 Polymyalgia rheumatica (principal); M81.8 Other osteoporosis without current pathological fracture; S22.000A Wedge compression fracture of unspecified thoracic vertebra, initial encounter for closed fracture; X58.XXXA Exposure to other specified factors, initial encounter

== ENCOUNTER 2017-03-11 17:26 | Observation (INO) | payer BC, OTHER ==
[~2017-03-11] VITALS: Ht 154.9 cm; Wt 69.9 kg
[2017-03-11] MEDS ORDERED: MoRPHine SULFATE 4 MG/ML 1 ML CARP\\VIAL IV STA (17:40)
[2017-03-11] MEDS ORDERED: ONDANSETRON INJ 2 MG/ML 2 ML VIAL IV STA (17:40)
[2017-03-11] MEDS ORDERED: ASPIRIN 324 MG CHEW PO STA (17:40)
[2017-03-11] MEDS ORDERED: IBUP-1050 PO (17:50)
[2017-03-11] MEDS ORDERED: LORA1TAB13 PO (17:50)
[2017-03-11 18:04] LABS: BASO % 0.2 %; BASO ABS # 0.02 K/uL (0-0.2); COMPLETE YES; EOS % 0.1 %; HEMATOCRIT 42.4 % (37-47); IG% 0.7 %; LYMPH % 9.7 %; LYMPH ABS # 1.17 K/uL (1.2-3.4); MEAN CELL VOLUME 95.7 fL (80-100); MEAN CORPUSCULAR HEMOGLOBIN 32.1 pg (25-34); MEAN CORPUSCULAR HGB CONC 33.5 g/dl (32-36); MEAN PLATELET VOLUME 9.8 fL (7.4-10.4); MONO % 10.1 %; NEUT % 79.2 %; PLATELET COUNT 308 K/uL (130-400); RED BLOOD COUNT 4.43 M/uL (4.2-5.4); WHITE BLOOD COUNT 12.08 K/uL (4.8-10.8)
--- NOTE | 2017-03-11 18:33 | DIAGNOSTIC IMAGING REPORT ---
CHEST ONE VIEW PORTABLE HISTORY: Atypical Chest Pain COMPARISON: Thoracic spine 01/10/2017. FINDINGS: No pleural fusions. No pneumothorax. The heart is normal in size. Mild interstitial thickening at the lungs is likely chronic. Elevation the left hemidiaphragm, unchanged. No new focal lung consolidations. No evidence for pulmonary edema. IMPRESSION: No significant change compared to the prior study. No acute process. Electronically signed by: Kiran Chaudhry M.D. 03/11/2017 6:32 PM Dictated Date/Time: 03/11/2017 6:31 PM
[2017-03-11 18:36] LABS: BLOOD UREA NITROGEN 15 mg/dl (7-18); BUN/CREATININE RATIO 18.3 (10-20); CARBON DIOXIDE 27 mmol/L (21-32); CHLORIDE 102 mmol/L (98-107); GLUCOSE 100 mg/dl (70-99); POTASSIUM 3.7 mmol/L (3.5-5.1); SODIUM 134 mmol/L (136-145)
[2017-03-11] MEDS ORDERED: OPTIRAY 320 IV PRN (19:15)
--- NOTE | 2017-03-11 19:51 | DIAGNOSTIC IMAGING REPORT ---
CHEST CTA for PULMONARY ARTERIES CT DOSE: 283.01 mGy.cm HISTORY: Elevated d-dimer. Atypical chest pain. TECHNIQUE: Multiaxial CT images of the chest were performed following the intravenous administration of contrast to evaluate the pulmonary arteries. Maximal intensity projection images were also obtained. A dose lowering technique was utilized adhering to the principles of ALARA. COMPARISON STUDY: None. FINDINGS: Moderate compression fractures at T4 and T10. The T4 compression fracture is stable and likely old. The T10 compression fracture has progressed from the 01/10/2017 radiograph. Therefore, this is consistent with an acute to subacute fracture. There is mild surrounding paravertebral edema. There is mild manubrial deformity suggestive of an old fracture. The visualized liver, spleen, and adrenal glands are unremarkable. A 6.3 cm cyst within the upper pole the right kidney. The heart is borderline enlarged. No pleural or pericardial effusions. No mediastinal or hilar lymphadenopathy. The thyroid gland enhances normally. No pneumothorax. The central airways are patent. Small bibasilar densities suggest subsegmental atelectasis. No focal lung consolidations to suggest pneumonia. Mild emphysema. Normal caliber thoracic aorta with no evidence for dissection. Nondiagnostic evaluation of the majority of the bilateral lower lobe and right middle lobe segmental and subsegmental arteries due to the respiratory motion artifact. Otherwise, the remaining pulmonary arteries show no filling defects to suggest pulmonary metastases. IMPRESSION: 1. No evidence for pulmonary embolus with limitations as described above. 2. Acute to subacute T10 compression fracture. 3. Mild emphysema. 4. Additional findings as described above. Electronically signed by: Kiran Chaudhry M.D. 03/11/2017 7:49 PM Dictated Date/Time: 03/11/2017 7:38 PM
[2017-03-11] MEDS ORDERED: FENTANYL CITRATE INJ 50 MCG/1 ML 2 ML VIAL IV STA (21:02)
--- NOTE | 2017-03-11 21:09 | History and Physical ---
History & Physical Date & Time of Service: Mar 11, 2017 at 20:59 Chief Complaint: Chest Pain Primary Care Physician: No Doctor, Assigned History of Present Illness Source: patient, partner, clinic records, hospital records 76F with a PMHx of PMR on Prednisone p/w a 30 min history of chest pain. The pain is described as sharp, non radiating, and is made worse when she moves her left arm or takes a deep breath. The pain is sometimes so bad that she cannot breath. I asked multiple times if there was a different type of chest tightness , the patient denied this. Multiple family members were present at bedside. The patient has never had a pain like this before. According to pt and family she had an echocardiogram within the past year at [facility]. Patient is a former smoker, not on oxygen at home but requires it in the ER. Pt denies cough or any URI symptoms. ROS: Denies any new onset swelling of the hands or feet, denies dyspnea on exertion, denies vomiting, denies diarrhea. PMHx: Chronic Back Pain and Spasms that are longstanding. Past Medical/Surgical History Medical Problems: (1) Seasonal allergies Status: Chronic Surgical Problems: (1) History of Status: Resolved Family History Hypertension Social History Smoking Status: Former Smoker Smokeless Tobacco Use: No Alcohol Use: none ([place]) Drug Use: none Marital Status: Occupational Status: retired Immunizations History of Influenza Vaccine: Unknown History of Tetanus Vaccine?: Unknown History of Pneumococcal: Unknown History of Hepatitis B Vaccine: Unknown Multi-Drug Resistant Organisms History of MDRO: No Allergies Coded Allergies: Vitamin D (Unverified Allergy, Severe, VOMITING, 03/11/17) Latex1 -Allergic Contact Dermititis (Verified Allergy, Mild, localized irritation, 03/11/17) Magnesium (Unverified Allergy, Unknown, UNKNOWN, 03/11/17) Penicillins (Unverified Allergy, Unknown, UNKNOWN, 03/11/17) Sulfa Antibiotics (Unverified Adverse Reaction, Unknown, NAUSEA, 03/11/17) Home Medications Scheduled Prednisone (Prednisone), 10 MG PO DAILY Scheduled PRN Ibuprofen (Advil), 200-600 MG PO Q4H PRN for Pain Lorazepam (Lorazepam), 0.5 MG PO BID PRN for Muscle Spasms Review of Systems Constitutional: No fever, No chills, No sweats, No weight loss, No weakness ENT: No hearing loss Respiratory: No cough, No sputum, No shortness of breath, No dyspnea on exertion, No dyspnea at rest Cardiovascular: + chest pain, No orthopnea, No edema, No palpitations Abdomen: No pain, No nausea, No vomiting, No diarrhea, No constipation Genitourinary - Female: No dysuria Physical Exam Vital Signs Date Time Temp Pulse Resp B/P (MAP) Pulse Ox O2 Delivery O2 Flow Rate FiO2 03/11/17 20:41 94 22 135/83 91 Room Air 03/11/17 19:30 102 16 142/90 95 Room Air 03/11/17 18:03 97 03/11/17 17:28 36.2 101 18 148/76 95 Room Air General Appearance: WD/WN, no apparent distress Eyes: PERRL, EOMI Respiratory/Chest: chest non-tender, lungs clear, normal breath sounds, no respiratory distress, no accessory muscle use Cardiovascular: no edema, no gallop, no JVD, no murmur, normal peripheral pulses, + tachycardia Abdomen/GI: normal bowel sounds, non tender, soft, no organomegaly, no pulsatile mass Back: no CVA tenderness Extremities/Musculoskelatal: normal inspection, no calf tenderness, normal capillary refill, no pedal edema, + pertinent finding (tender mid sternum, patient also reported her chest pain symptoms when moving the left arm upwards in front of body) Neurologic/Psych: buffer chrome II-XII nml as tested, no motor/sensory deficits, alert, normal mood/affect, oriented x 3 Diagnostics Laboratory Results Results Past 24 Hours Test 03/11/17 17:45 Range/Units White Blood Count 12.08 4.8-10.8 K/uL Red Blood Count 4.43 4.2-5.4 M/uL Hemoglobin 14.2 12.0-16.0 g/dL Hematocrit 42.4 37-47 % Mean Corpuscular Volume 95.7 80-100 fL Mean Corpuscular Hemoglobin 32.1 25-34 pg Mean Corpuscular Hemoglobin Concent 33.5 32-36 g/dl Platelet Count 308 130-400 K/uL Mean Platelet Volume 9.8 7.4-10.4 fL Neutrophils (%) (Auto) 79.2 % Lymphocytes (%) (Auto) 9.7 % Monocytes (%) (Auto) 10.1 % Eosinophils (%) (Auto) 0.1 % Basophils (%) (Auto) 0.2 % Neutrophils # (Auto) 9.57 1.4-6.5 K/uL Lymphocytes # (Auto) 1.17 1.2-3.4 K/uL Monocytes # (Auto) 1.22 0.11-0.59 K/uL Eosinophils # (Auto) 0.01 0-0.5 K/uL Basophils # (Auto) 0.02 0-0.2 K/uL RDW Standard Deviation 47.5 36.4-46.3 fL RDW Coefficient of Variation 13.7 11.5-14.5 % Immature Granulocyte % (Auto) 0.7 % Immature Granulocyte # (Auto) 0.09 0.00-0.02 K/uL D-Dimer 3750 0-500 ug/L FEU Sodium Level 134 136-145 mmol/L Potassium Level 3.7 3.5-5.1 mmol/L Chloride Level 102 98-107 mmol/L Carbon Dioxide Level 27 21-32 mmol/L Anion Gap 5.0 3-11 mmol/L Blood Urea Nitrogen 15 7-18 mg/dl Creatinine 0.80 0.60-1.20 mg/dl Est Creatinine Clear Calc Drug Dose 55.2 ml/min Estimated GFR () 84.2 Estimated GFR (Non- 72.6 BUN/Creatinine Ratio 18.3 10-20 Random Glucose 100 70-99 mg/dl Calcium Level 9.0 8.5-10.1 mg/dl Total Creatine Kinase 50 26-192 U/L Creatine Kinase MB 1.0 0.5-3.6 ng/ml Creatine Kinase MB Ratio 2.0 0-3.0 Troponin I < 0.015 0-0.045 ng/ml Diagnostic Radiology CHEST CTA for PULMONARY ARTERIES CT DOSE: 283.01 mGy.cm HISTORY: Elevated d-dimer. Atypical chest pain. TECHNIQUE: Multiaxial CT images of the chest were performed following the intravenous administration of contrast to evaluate the pulmonary arteries. Maximal intensity projection images were also obtained. A dose lowering technique was utilized adhering to the principles of ALARA. COMPARISON STUDY: None. FINDINGS: Moderate compression fractures at T4 and T10. The T4 compression fracture is stable and likely old. The T10 compression fracture has progressed from the 01/10/2017 radiograph. Therefore, this is consistent with an acute to subacute fracture. There is mild surrounding paravertebral edema. There is mild manubrial deformity suggestive of an old fracture. The visualized liver, spleen, and adrenal glands are unremarkable. A 6.3 cm cyst within the upper pole the right kidney. The heart is borderline enlarged. No pleural or pericardial effusions. No mediastinal or hilar lymphadenopathy. The thyroid gland enhances normally. No pneumothorax. The central airways are patent. Small bibasilar densities suggest subsegmental atelectasis. No focal lung consolidations to suggest pneumonia. Mild emphysema. Normal caliber thoracic aorta with no evidence for dissection. Nondiagnostic evaluation of the majority of the bilateral lower lobe and right middle lobe segmental and subsegmental arteries due to the respiratory motion artifact. Otherwise, the remaining pulmonary arteries show no filling defects to suggest pulmonary metastases. IMPRESSION: 1. No evidence for pulmonary embolus with limitations as described above. 2. Acute to subacute T10 compression fracture. 3. Mild emphysema. 4. Additional findings as described above. CHEST ONE VIEW PORTABLE HISTORY: Atypical Chest Pain COMPARISON: Thoracic spine 01/10/2017. FINDINGS: No pleural fusions. No pneumothorax. The heart is normal in size. Mild interstitial thickening at the lungs is likely chronic. Elevation the left hemidiaphragm, unchanged. No new focal lung consolidations. No evidence for pulmonary edema. IMPRESSION: No significant change compared to the prior study. No acute process. Impression Assessment and Plan 76F with a PMHx of PMR on Prednisone p/w a 30 min history of chest pain. Patient was admitted to obs for a chest pain rule out. Incidentally she appears to also have oral thrush which we will treat. Sternal Chest likely MSK Patient has a history of chronic muscle spasms. On my exam the pain was reproducible on palpation and movement of the L arm. Trop negative x 1. EKG showed Normal sinus rhythm. Will order Voltaren Gel for the pain to see if it improves. Patient had a recent echocardiogram at [facility] within the past two years that she states was normal, I do not have access to Powerchart at present. Consider repeat echo, CT did not have a concern for pericarditis. Follow up CMP, Lipase. New Oxygen Requirement Unsure where this is from, patient desatted to 87% when oxygen was removed. She does have a smoking history but no formol COPD diagnosis. No dyspnea on exertion in history. Will get incentive spirometry. Patient will need to be weaned from oxygen before DC or go home on home O2. Polymyalgia Rheumatica Started earlier in the year on 60mg and tapered to 10mg, will give a stress dose of 20mg daily. WBC is likely elevated secondary to steroid use. Oral Thrush likely from Chronic Prednisone Use Will order Clotrimazole troch 5 times day. Fluconazole 50mg QAM. Acute on Chronic Compression Fracture, T10. Will order PT and OT to determine needs. DVT Proph Hep SQ Dispo: Good family support, obs, tele. FULL CODE Attending addendum: I have physically seen this patient, have supervised the medical residents activities, and agree with the H&P unless as otherwise noted. Assessment and Plan: Precordial chest pain/dyspnea on exertion/mild hypoxia-- The patient will be admitted to telemetry for serial cardiac enzymes, serial EKGs, cardiac rhythm monitoring and a 2-D echocardiogram with Dopplers. Normal first troponin and EKG. Pain may be multifactorial Add Voltaren gel 4 times a day. Nitroglycerin sublingual when necessary Incentive spirometry Duonebs every 4 hours when necessary Polymyalgia rheumatica-- Reports having started prednisone 60 mg early in urine is been tapered to 10 mg daily. Stress dose at 20 mg daily for now, and add Voltaren gel as noted above. Thrush/possible yeast esophagitis-- Place on clotrimazole troches 5 times a day for 5 days Fluconazole 200 mg by mouth daily T10 compression fracture-- Acute on chronic Minimizing steroid use as much is possible, but she does have significant polymyalgia rheumatica symptoms. Level of Care Telemetry Advanced Directives Existing Advance Directive: No Existing Living Will: No Existing Power of Yard Associate: No Resuscitation Status FULL RESUSCITATION VTE Prophylaxis VTE Risk Assessment Done? Y/N: Yes Risk Level: Moderate Given or contraindicated: SCD's Social Service Consult None Apply Resident Involvement: Resident Care Provided Care Provided: Adult Hospital Medicine
[2017-03-11] MEDS ORDERED: LORAZEPAM 1 MG TAB PO PRN (22:15)
[2017-03-11] MEDS ORDERED: ONDANSETRON INJ 2 MG/ML 2 ML VIAL IV PRN (22:15)
[2017-03-11] MEDS ORDERED: ZOLPIDEM TARTRATE 5 MG TAB PO PRN ×2 (22:15)
[2017-03-11] MEDS ORDERED: ACETAMINOPHEN 325 MG TAB PO PRN (22:15)
[2017-03-11] MEDS ORDERED: POLYETHYLENE (MIRALAX) 17 GM PACK PO PRN (22:15)
[2017-03-11] MEDS ORDERED: IV FLUIDS COMPLETED PRN (22:30)
--- NOTE | 2017-03-11 22:30 | EMERGENCY ROOM VISIT NOTE ---
History Report prepared by Jez: Anthony Jerome Under the Supervision of: Dr. Kvng Guzmán D.O. First contact with patient: 17:31 Chief Complaint: CHEST PAIN Stated Complaint: CHEST PAIN Nursing Triage Summary: pt to the ED with midsternal chest pain nonradiating with SOB that started when she got out of the car History of Present Illness The patient is a 76 year old female who presents to the Emergency Room with complaints of constant chest pain starting around 30 minutes prior to arrival, and she describes it as a cramping tightness associated with a heaviness. The cramping pain on her chest is reproducible on exam with movement of her arm. Heaviness is not is completely separate onto the cramping sharp pain. She states that she is short of breath from the pain. The patient additionally states that she has been having diffuse back spasms for the past two months, and she believes that these are related. She currently has no pain in her back at this point. The patient states that she hector not currently have any back spasms, and she takes muscles relaxers for the spasms. She reports that she has been taking prednisone for PMR. She denies any history of diabetes, hypertension , high cholesterol. and heart disease. Pt denies arm pain, jaw pain, headache, change in vision, fevers, nausea, vomiting, diarrhea, pain with urination, and melena. Source of History: patient Onset: 30 minutes prior to arrival Position: chest Quality: other (cramping tightness) Timing: constant Associated Symptoms: + SOB Review of Systems See HPI for pertinent positives & negatives. A total of 10 systems reviewed and were otherwise negative. Past Medical & Surgical Medical Problems: (1) Chest pain of uncertain etiology (2) Sciatica (3) Seasonal allergies Surgical Problems: (1) History of Family History Hypertension Social History Smoking Status: Former Smoker Drug Use: none Marital Status: Housing Status: lives alone Occupation Status: retired Current/Historical Medications Scheduled Prednisone (Prednisone), 10 MG PO DAILY Scheduled PRN Ibuprofen (Advil), 200-600 MG PO Q4H PRN for Pain Lorazepam (Lorazepam), 0.5 MG PO BID PRN for Muscle Spasms Allergies Coded Allergies: Vitamin D (Unverified Allergy, Severe, VOMITING, 03/11/17) Magnesium (Unverified Allergy, Unknown, UNKNOWN, 03/11/17) Penicillins (Unverified Allergy, Unknown, UNKNOWN, 03/11/17) Sulfa Antibiotics (Unverified Adverse Reaction, Unknown, NAUSEA, 03/11/17) Physical Exam Vital Signs Date Time Temp Pulse Resp B/P (MAP) Pulse Ox O2 Delivery O2 Flow Rate FiO2 03/11/17 22:04 102 03/11/17 21:13 93 20 132/81 97 Nasal Cannula 2.0 03/11/17 21:05 95 20 98 Nasal Cannula 2.0 03/11/17 20:41 94 22 135/83 91 Room Air 03/11/17 19:30 102 16 142/90 95 Room Air 03/11/17 18:03 97 03/11/17 17:28 36.2 101 18 148/76 95 Room Air Physical Exam GENERAL: Sitting up in bed holding her anterior chest wall, no acute distress. EYE EXAM: normal conjunctiva. OROPHARYNX: no exudate, no erythema, lips, buccal mucosa, and tongue normal and mucous membranes are moist NECK: supple, no nuchal rigidity, no adenopathy, non-tender LUNGS: Clear to auscultation. Normal chest wall mechanics HEART: no murmurs, S1 normal and S2 normal CHEST: No reproducible anterior chest wall pain. ABDOMEN: abdomen soft, non-tender, normo-active bowel sounds, no masses, no rebound or guarding. BACK: Back is symmetrical on inspection and there is no deformity, no midline tenderness, no CVA tenderness. SKIN: no rashes and no bruising UPPER EXTREMITIES: Radial pulses are equal bilaterally. Upper extremities are grossly normal. LOWER EXTREMITIES: Faint pitting edema. NEURO EXAM: Normal sensorium, cranial nerves II-XII grossly intact, normal speech, no gross weakness of arms, no gross weakness of legs. Gross sensation intact. Medical Decision & Procedures ER Provider Diagnostic Interpretation: Radiology results as stated below per my review and the radiologist's interpretation: CHEST ONE VIEW PORTABLE HISTORY: Atypical Chest Pain COMPARISON: Thoracic spine 01/10/2017. FINDINGS: No pleural fusions. No pneumothorax. The heart is normal in size. Mild interstitial thickening at the lungs is likely chronic. Elevation the left hemidiaphragm, unchanged. No new focal lung consolidations. No evidence for pulmonary edema. IMPRESSION: No significant change compared to the prior study. No acute process. Electronically signed by: Kiran Chaudhry M.D. 03/11/2017 6:32 PM Dictated Date/Time: 03/11/2017 6:31 PM CHEST CTA for PULMONARY ARTERIES CT DOSE: 283.01 mGy.cm HISTORY: Elevated d-dimer. Atypical chest pain. TECHNIQUE: Multiaxial CT images of the chest were performed following the intravenous administration of contrast to evaluate the pulmonary arteries. Maximal intensity projection images were also obtained. A dose lowering technique was utilized adhering to the principles of ALARA. COMPARISON STUDY: None. FINDINGS: Moderate compression fractures at T4 and T10. The T4 compression fracture is stable and likely old. The T10 compression fracture has progressed from the 01/10/2017 radiograph. Therefore, this is consistent with an acute to subacute fracture. There is mild surrounding paravertebral edema. There is mild manubrial deformity suggestive of an old fracture. The visualized liver, spleen, and adrenal glands are unremarkable. A 6.3 cm cyst within the upper pole the right kidney. The heart is borderline enlarged. No pleural or pericardial effusions. No mediastinal or hilar lymphadenopathy. The thyroid gland enhances normally. No pneumothorax. The central airways are patent. Small bibasilar densities suggest subsegmental atelectasis. No focal lung consolidations to suggest pneumonia. Mild emphysema. Normal caliber thoracic aorta with no evidence for dissection. Nondiagnostic evaluation of the majority of the bilateral lower lobe and right middle lobe segmental and subsegmental arteries due to the respiratory motion artifact. Otherwise, the remaining pulmonary arteries show no filling defects to suggest pulmonary metastases. IMPRESSION: 1. No evidence for pulmonary embolus with limitations as described above. 2. Acute to subacute T10 compression fracture. 3. Mild emphysema. 4. Additional findings as described above. Electronically signed by: Kiran Chaudhry M.D. 03/11/2017 7:49 PM Dictated Date/Time: 03/11/2017 7:38 PM Laboratory Results 03/11/17 17:45 Red Blood Count 4.43, Mean Corpuscular Volume 95.7, Mean Corpuscular Hemoglobin 32.1, Mean Corpuscular Hemoglobin Concent 33.5, Mean Platelet Volume 9.8, Neutrophils (%) (Auto) 79.2, Lymphocytes (%) (Auto) 9.7, Monocytes (%) (Auto) 10.1, Eosinophils (%) (Auto) 0.1, Basophils (%) (Auto) 0.2, Neutrophils # (Auto ) 9.57, Lymphocytes # (Auto) 1.17, Monocytes # (Auto) 1.22, Eosinophils # (Auto ) 0.01, Basophils # (Auto) 0.02 Test 03/11/17 17:45 03/11/17 22:01 White Blood Count 12.08 K/uL (4.8-10.8) Red Blood Count 4.43 M/uL (4.2-5.4) Hemoglobin 14.2 g/dL (12.0-16.0) Hematocrit 42.4 % (37-47) Mean Corpuscular Volume 95.7 fL (80-100) Mean Corpuscular Hemoglobin 32.1 pg (25-34) Mean Corpuscular Hemoglobin Concent 33.5 g/dl (32-36) Platelet Count 308 K/uL (130-400) Mean Platelet Volume 9.8 fL (7.4-10.4) Neutrophils (%) (Auto) 79.2 % Lymphocytes (%) (Auto) 9.7 % Monocytes (%) (Auto) 10.1 % Eosinophils (%) (Auto) 0.1 % Basophils (%) (Auto) 0.2 % Neutrophils # (Auto) 9.57 K/uL (1.4-6.5) Lymphocytes # (Auto) 1.17 K/uL (1.2-3.4) Monocytes # (Auto) 1.22 K/uL (0.11-0.59) Eosinophils # (Auto) 0.01 K/uL (0-0.5) Basophils # (Auto) 0.02 K/uL (0-0.2) RDW Standard Deviation 47.5 fL (36.4-46.3) RDW Coefficient of Variation 13.7 % (11.5-14.5) Immature Granulocyte % (Auto) 0.7 % Immature Granulocyte # (Auto) 0.09 K/uL (0.00-0.02) D-Dimer 3750 ug/L FEU (0-500) Est Creatinine Clear Calc Drug Dose 55.2 ml/min Total Creatine Kinase 50 U/L (26-192) Creatine Kinase MB 1.0 ng/ml (0.5-3.6) Creatine Kinase MB Ratio 2.0 (0-3.0) Troponin I < 0.015 ng/ml (0-0.045) Laboratory results per my review. Medications Administered Medications (Trade) Dose Ordered Sig/Ban Route Start Time Stop Time Status Last Admin Dose Admin Aspirin (Aspirin Chew) 324 mg NOW STAT PO 03/11/17 17:40 03/11/17 17:42 DC 03/11/17 17:55 324 MG Morphine Sulfate (MoRPHine SULFATE INJ) 4 mg NOW STAT IV 03/11/17 17:40 03/11/17 17:42 DC 03/11/17 18:00 4 MG Ondansetron HCl (Zofran Inj) 4 mg NOW STAT IV 03/11/17 17:40 03/11/17 17:42 DC 03/11/17 17:56 4 MG Fentanyl Citrate (Fentanyl Inj) 50 mcg NOW STAT IV 03/11/17 21:02 03/11/17 21:03 DC 03/11/17 21:11 50 MCG ECG Indication: chest pain Rate (beats per minute): 95 Rhythm: sinus rhythm Findings: nonspecific-ST abn (lateral), other (Normal axis) Change: REPEAT EKG: Normal Sinus Rhythm, normal axis, no ectopy. ED Course ED COURSE: Vital signs were reviewed and showed normal vitals The patients medical record was reviewed The above diagnostic studies were performed and reviewed. ED treatments and interventions as stated above. 1730: The patient was evaluated in room A2. A complete history and physical examination was performed. 0: Zofran 4mg IV, Morphine Sulfate 4mg IV, Aspirin 324mg PO 190: I reevaluated and updated the patient. 2030: I reviewed the patient's case with Dr Sotomayor. He will evaluate the patient for further management. 2039: Upon reevaluation, the patient is doing well but having more pain. I discussed my findings with the patient and she understands and agrees with the treatment plan. Based on the patients age, coexisting illnesses, exam and lab findings the decision to treat as an inpatient was made. The patient remained stable while under my care. The patient will be evaluated for further management. 2101: Fentanyl 50mcg IV Medical Decision Differential diagnoses includes but is not limited to acute coronary syndrome, myocardial infarction, pericarditis, pulmonary embolus, aortic dissection, pneumonia, pneumothorax, musculoskeletal, shingles, esophageal. Patient is a 76-year-old female who presents to ER for chest pain. She describes 2 separate types of chest pain. One is sharp stabbing and worsened with twisting turning bending. She also has a heaviness and some shortness of breath. She just points back pain which does not have this point. CBC shows a mildly stenosis. BMP was unremarkable. Troponin was negative. D-dimer was elevated. CT PE was performed and shows worsening compression fracture at T10. She currently has no complaints with this. 2 doses of IV fentanyl. She was given Zofran and aspirin. EKG was unremarkable 2. I do favor this is likely muscle skeletal but with this chest heaviness which she although poor historian does describe as being completely separate onto her sharp stabbing pain as concerned that this could possibly be her heart associated with her age. I discussed with internal medicine for further evaluation based on this. Medication Reconcilliation Current Medication List: was personally reviewed by me Blood Pressure Screening Patient's blood pressure: Normal blood pressure Monitored by the hospitalist Consults Time Called: 2029 Consulting Physician: Dr. Sotomayor Returned Call: 2030 I reviewed the patient's case with Dr. Sotomayor. He will evaluate the patient for further management. Impression Primary Impression: Precordial chest pain Additional Impression: Compression fracture of thoracic vertebra Scribe Attestation The scribe's documentation has been prepared under my direction and personally reviewed by me in its entirety. I confirm that the note above accurately reflects all work, treatment, procedures, and medical decision making performed by me. Departure Information Dispostion Being Evaluated By Hospitalist Referrals No Doctor, Assigned (PCP) Patient Instructions [facility] Problem Qualifiers Additional Impression: Compression fracture of thoracic vertebra Encounter type: initial encounter Fracture type: closed Qualified Codes: S22.000A - Wedge compression fracture of unspecified thoracic vertebra, initial encounter for closed fracture
[2017-03-11 22:48] VITALS: BP 143/75; PULSE 99; TEMP 37.5; O2SAT 95; Ht 154.9 cm; Wt 69.9 kg
[2017-03-11] MEDS ORDERED: SODIUM CHLORIDE 0.9% 1000ML 1,000 ML IV SCH (23:00)
[2017-03-11] MEDS ORDERED: LORAZEPAM 0.5 MG TAB PO PRN (23:15)
[2017-03-11] MEDS ORDERED: PNEUMOCOCCAL POLYSACCHARIDES 25 MCG/0.5 ML VIAL/SYR IM. ONE (23:45)
[2017-03-11] MEDS ORDERED: PNEUMOCOCCAL ADMINISTRATION CHARGE ONE (23:45)
[2017-03-11] MEDS ORDERED: INFLUENZA VIRUS QUAD VACCINE 0.5 ML SYR IM. ONE (23:45)
[2017-03-11] MEDS ORDERED: INFLUENZA ADMINISTRATION CHARGE ONE (23:45)
[2017-03-11 23:49] LABS: CALCIUM 8.3 mg/dl (8.5-10.1); CREATININE 0.68 mg/dl (0.60-1.20); POTASSIUM 3.6 mmol/L (3.5-5.1)
[2017-03-12] VITALS (9 sets, daily range): BP systolic 100–148; BP diastolic 46–81; PULSE 62–133; TEMP 36.3–37.7; O2SAT 92–96
[2017-03-12] MEDS: CLOTRIMAZOLE 10 MG TROCHE MT SCH ×5 (00:55→19:31)
[2017-03-12] MEDS: IBUPROFEN 200 MG TAB PO PRN ×2 (03:33→09:29)
[2017-03-12 04:39] LABS: PROTHROMBIN TIME (PATIENT) 10.8 SECONDS (9.0-12.0)
[2017-03-12 06:35] LABS: URINE APPEARANCE CLOUDY (CLEAR); URINE BILIRUBIN NEG (NEG); URINE COLOR YELLOW; URINE EPITHELIAL CELL AUTO >30 /lpf (0-5); URINE NITRITE POS (NEG); URINE PH 5.5 (4.5-7.5); URINE SPECIFIC GRAVITY 1.025 (1.000-1.030); UROBILINOGEN NEG (NEG); ZZUR CULT IF INDIC CLEAN CATCH YES
[2017-03-12 06:42] LABS: MANUAL MICROSCOPIC REQUIRED? NO; REVIEW REQ? NO
[2017-03-12] MEDS ORDERED: HEPARIN SOD 5000 UNIT/0.5 ML CARP SQ SCH (09:00)
[2017-03-12] MEDS ORDERED: FLUCONAZOLE 50 MG TAB PO SCH (09:00)
[2017-03-12] MEDS: DICLOFENAC SOD 1% GEL 100 GM TUBE EXT SCH ×3 (09:07→20:12)
[2017-03-12] MEDS: ASPIRIN 81 MG ECTAB PO SCH (09:09)
[2017-03-12] MEDS: FLUCONAZOLE 50 MG TAB PO SCH (09:14)
[2017-03-12] MEDS ORDERED: NURSING VERBAL MED ORDER ONE (10:15)
[2017-03-12] MEDS ORDERED: CYCLOBENZAPRINE HCL 5 MG TAB PO ONE (10:15)
[2017-03-12] MEDS ORDERED: METOPROLOL TARTRATE 25 MG TAB PO STA (16:05)
[2017-03-12] MEDS ORDERED: DIGOXIN IV 250 MCG in SYRINGE 9 ML IV ONE (17:15)
[2017-03-12] MEDS ORDERED: CEFTRIAXONE SOD INJ 1 GM in DEXTROSE 5% ADD-VANTAGE 50ML 50 ML IV SCH (18:00)
--- NOTE | 2017-03-12 18:18 | Family Medicine Progress Note ---
Progress Note Date of Service Mar 12, 2017. Subjective Pt evaluation today including: conversation w/ patient, physical exam, chart review, lab review Pain: mid-sternal chest pain PO Intake: tolerating Voiding: no voiding problems This AM pt reported mid-sternal chest pain tender to palpation and worse with L hand movement. Pain described as intermittent crampy/spasm-like / that started when she was getting out of her car as if she pulled something and now it feels sore. denied any sob, cough, congestion, no sob on exertion reported. Able to carry out activities of daily living without any limitations. Reports sulfur smelling urine but denied dysuria, hematuria Constitutional: No fever, No chills Respiratory: No cough, No shortness of breath, No dyspnea on exertion Cardiovascular: + chest pain Abdomen: No pain, No nausea, No vomiting Female : No dysuria, No hematuria Medications Current Inpatient Medications Medications (Trade) Dose Ordered Sig/Ban Route Start Time Stop Time Status Last Admin Dose Admin Ioversol (Optiray 320) 100 ml UD PRN IV 03/11/17 19:15 03/15/17 19:14 Acetaminophen (Tylenol Tab) 650 mg Q4H PRN PO 03/11/17 22:15 04/10/17 22:14 Zolpidem Tartrate (Ambien Tab) 5 mg HSZ PRN PO 03/11/17 22:15 04/10/17 22:14 Ondansetron HCl (Zofran Inj) 4 mg Q6H PRN IV 03/11/17 22:15 04/10/17 22:14 Aspirin (Ecotrin Tab) 81 mg QAM PO 03/12/17 09:00 04/11/17 08:59 03/12/17 09:09 81 MG Polyethylene (Miralax Powder Packet) 17 gm DAILY PRN PO 03/11/17 22:15 04/10/17 22:14 Clotrimazole (Mycelex 10MG Bernadette) 1 bernadette [id number] MT 03/11/17 23:00 03/21/17 22:59 03/12/17 16:22 1 BERNADETTE Diclofenac Sodium (Voltaren 1% Top Gel) 1 appln TID EXT 03/12/17 09:00 04/11/17 08:59 03/12/17 16:22 1 APPLN Prednisone (PredniSONE TAB) 20 mg QAM PO 03/12/17 09:00 04/11/17 08:59 03/12/17 09:09 20 MG Ibuprofen (Advil Tab) 400 mg Q4H PRN PO 03/11/17 22:15 18 22:14 03/12/17 09:29 400 MG Miscellaneous (Iv Fluids Completed) 1 ea PRN PRN N/A 03/11/17 22:30 03/11/18 22:29 Lorazepam (Ativan Tab) 0.5 mg BID PRN PO 03/11/17 23:15 04/10/17 23:14 03/12/17 03:32 0.5 MG Fluconazole (Diflucan Tab) 200 mg QAM PO 03/12/17 09:00 03/22/17 08:59 03/12/17 09:14 200 MG Ceftriaxone Sodium 1 gm/ Dextrose 50 ml @ 100 mls/hr Q24H IV 03/12/17 18:00 03/17/17 17:59 03/12/17 17:08 100 MLS/HR Metoprolol Tartrate (Lopressor Tab) 12.5 mg BID PO 03/12/17 21:00 04/11/17 20:59 UNV Rivaroxaban (Xarelto Tab) 20 mg DAILY PO 03/13/17 09:00 04/12/17 08:59 UNV Objective Vital Signs Date Time Temp Pulse Resp B/P (MAP) Pulse Ox O2 Delivery O2 Flow Rate FiO2 03/12/17 17:30 67 127/68 (87) 03/12/17 17:08 136 03/12/17 16:00 Room Air 03/12/17 16:00 133 03/12/17 15:50 36.6 63 18 100/46 (64) 92 Room Air 03/12/17 12:00 92 Room Air 03/12/17 11:03 36.7 71 18 103/70 (81) 94 2.0 03/12/17 08:00 Nasal Cannula 2.0 03/12/17 07:43 36.8 80 18 103/61 (75) 94 2.0 03/12/17 04:25 Nasal Cannula 2.0 03/12/17 03:51 37.7 91 18 127/74 (91) 96 Nasal Cannula 1.0 03/11/17 22:48 37.5 99 18 143/75 95 Nasal Cannula 2.0 03/11/17 22:41 98 20 147/60 95 03/11/17 22:04 102 03/11/17 21:13 93 20 132/81 97 Nasal Cannula 2.0 03/11/17 21:05 95 20 98 Nasal Cannula 2.0 03/11/17 20:41 94 22 135/83 91 Room Air 03/11/17 19:30 102 16 142/90 95 Room Air Physical Exam General Appearance: no apparent distress Eyes: normal inspection Respiratory/Chest: lungs clear, normal breath sounds, + pertinent finding (mid- sternum TTP and pain reproducible when L arm moved in front of the body) Cardiovascular: regular rate, rhythm, no murmur Abdomen: normal bowel sounds, non tender, soft Extremities: non-tender, no pedal edema Neurologic/Psychiatric: alert, oriented x 3 Laboratory Results 03/11/17 23:13 Test 03/11/17 23:13 03/12/17 03:15 03/12/17 03:59 03/12/17 15:38 Erythrocyte Sedimentation Rate 22 mm/hr (0-21) Anion Gap 7.0 mmol/L (3-11) Est Creatinine Clear Calc Drug Dose 64.9 ml/min Estimated GFR () 99.9 Estimated GFR (Non- 86.2 BUN/Creatinine Ratio 17.0 (10-20) Calcium Level 8.3 mg/dl (8.5-10.1) Total Bilirubin 0.6 mg/dl (0.2-1) Aspartate Amino Transf (AST/SGOT) 17 U/L (15-37) Alanine Aminotransferase (ALT/SGPT) 17 U/L (12-78) Alkaline Phosphatase 96 U/L (45-117) Total Protein 6.2 gm/dl (6.4-8.2) Albumin 3.1 gm/dl (3.4-5.0) Globulin 3.1 gm/dl (2.5-4.0) Albumin/Globulin Ratio 1.0 (0.9-2) Lipase 88 U/L (73-393) Urine Color YELLOW Urine Appearance CLOUDY (CLEAR) Urine pH 5.5 (4.5-7.5) Urine Specific [place] 1.025 (1.000-1.030) Urine Protein NEG (NEG) Urine Glucose (UA) NEG (NEG) Urine Ketones TRACE (NEG) Urine Occult Blood 1+ (NEG) Urine Nitrite POS (NEG) Urine Bilirubin NEG (NEG) Urine Urobilinogen NEG (NEG) Urine Leukocyte Esterase LARGE (NEG) Urine WBC (Auto) >30 /hpf (0-5) Urine RBC (Auto) 0-4 /hpf (0-4) Urine Hyaline Casts (Auto) 0 /lpf (0-5) Urine Epithelial Cells (Auto) >30 /lpf (0-5) Urine Bacteria (Auto) 2+ (NEG) Prothrombin Time 10.8 SECONDS (9.0-12.0) Prothromb Time International Ratio 1.0 (0.9-1.1) Troponin I < 0.015 ng/ml (0-0.045) Assessment and Plan 76F with a PMHx of PMR on Prednisone p/w a 30 min history of chest pain on to the ED. Negative troponins x 4. Today found to be in new onset Afib controlled with digoxin. Sternal Chest likely MSK given reproducible on palpation and L arm movement Hx a history of chronic muscle spasms - Trop negative x 4 - EKG NSR - Lipase wnl - CMP wnl - ESR elevated at 22 - D-dimer elevated at 3750 - Voltaren Gel 4x/day - Nitroglycerin as needed - flexeril trial dose New onset asymptomatic Afib 130s-140s 1 episode Afib in 130s-140s converted to sinus 60s with Lopressor 25mg PO stat and Digoxin 250 mcg IV stat - today (03/12) - Ordered ECHO - Ordered TSH - Electrolytes wnl - Started on metoprolol 12.5mg BID - Started on Xarelto 20mg daily for anticoagulation Dirty UA pending UCx - Started on Rocephin IV 1g Q24H - day 1 New Oxygen Requirement - unknown etiology hx of smoking (no COPD diagnosis) - Desatted to 87% when oxygen removed - IS ordered - given likely from chest discomfort impacting effort - Wean as tolerated Polymyalgia Rheumatica - Initially on Prednisone 60mg - tapered to 10mg - will give stress dose of 20mg daily - WBC 12.08 elevation likely 2/2 prednisone Oral Thrush likely from Chronic Prednisone Use - Clotrimazole troch 5x/day - Fluconazole 50mg QAM. Acute on Chronic Compression Fracture, T10 likely from chronic prednisone use - attempt to decrease prednisone use - PT and OT ordered DVT Proph Hep SQ --> transitioned to Xarelto 20mg daily given Afib Dispo: Good family support, obs, tele. FULL CODE Resident Involvement: Resident Care Provided Care Provided: Adult Hospital Medicine Reviewed: Pt Seen/Exam by Me History chest pain still present. feels like spasm all across the centre the chest Constitutional: denies: fever Respiratory: negative: short of breath Cardiovascular: denies chest pain General Appearance: mild distress Respiratory: lungs clear, no respiratory distress Cardiovascular: regular rate, rhythm Neurologic/Psychiatric: alert, oriented x 3 Skin Characteristics: warm/dry Assessment/Plan Resident Physician Supervision Note: I independently interviewed and examined the patient and verified the miller history and physical, reviewed labs and image studies, discussed the case with the resident Dr. Deluca and agree with the findings and care plan.
[2017-03-12] MEDS ORDERED: RIVAROXABAN 20 MG TAB PO SCH (19:30)
[2017-03-12] MEDS: METOPROLOL TARTRATE 25 MG TAB PO SCH (20:13)
[2017-03-13] MEDS: IBUPROFEN 200 MG TAB PO PRN
[2017-03-13 04:00] VITALS: BP 144/77; PULSE 79; TEMP 36.6; O2SAT 91
[2017-03-13 06:29] LABS: BASO % 0.2 %; BASO ABS # 0.02 K/uL (0-0.2); COMPLETE YES; EOS % 0.6 %; HEMATOCRIT 38.2 % (37-47); IG% 0.4 %; LYMPH % 10.6 %; LYMPH ABS # 1.18 K/uL (1.2-3.4); MEAN CELL VOLUME 96.2 fL (80-100); MEAN CORPUSCULAR HGB CONC 32.2 g/dl (32-36); MEAN PLATELET VOLUME 9.2 fL (7.4-10.4); MONO % 14.3 %; NEUT % 73.9 %; PLATELET COUNT 234 K/uL (130-400); RED BLOOD COUNT 3.97 M/uL (4.2-5.4); WHITE BLOOD COUNT 11.12 K/uL (4.8-10.8)
[2017-03-13 07:05] LABS: BUN/CREATININE RATIO 16.3 (10-20); CALCIUM 8.3 mg/dl (8.5-10.1); CREATININE 0.68 mg/dl (0.60-1.20); POTASSIUM 3.6 mmol/L (3.5-5.1)
[2017-03-13 07:16] LABS: ALB/GLOB RATIO 0.8 (0.9-2); THYROID STIMULATING HORMONE 0.583 uIu/ml (0.300-4.500)
[2017-03-13 07:22] VITALS: BP 121/60; PULSE 66; TEMP 36.8; O2SAT 95
[2017-03-13] MEDS: FLUCONAZOLE 50 MG TAB PO SCH (07:53)
[2017-03-13] MEDS: METOPROLOL TARTRATE 25 MG TAB PO SCH (07:53)
[2017-03-13] MEDS: ASPIRIN 81 MG ECTAB PO SCH (07:53)
[2017-03-13] MEDS: DICLOFENAC SOD 1% GEL 100 GM TUBE EXT SCH ×2 (07:54→14:22)
[2017-03-13] MEDS: CLOTRIMAZOLE 10 MG TROCHE MT SCH ×3 (07:54→11:28)
[2017-03-13] MEDS ORDERED: XRL20 PO ×2 (10:52→13:14)
[2017-03-13] MEDS ORDERED: LPR25 PO ×2 (10:52→13:14)
[2017-03-13] MEDS ORDERED: LIDO1PAD2 TD ×2 (10:52→13:14)
[2017-03-13] MEDS ORDERED: MYC10 MT ×2 (10:52→13:14)
[2017-03-13] MEDS ORDERED: FLUC200T PO ×2 (10:52→13:14)
[2017-03-13] MEDS ORDERED: NITR-5 PO ×2 (10:52→13:14)
[2017-03-13] MEDS ORDERED: VLTG EXT ×2 (10:52→13:14)
[2017-03-13 11:40] VITALS: BP 116/61; PULSE 72; TEMP 37; O2SAT 96
--- NOTE | 2017-03-13 12:14 | Discharge Instructions ---
Discharge Instructions Date of Service Mar 13, 2017. Admission Reason for Admission: Chest Pain Of Uncertain Etiology Discharge Discharge Diagnosis / Problem: Chest Pain and Atrial Fibrillation Discharge Goals Goal(s): Decrease discomfort, Improve function, Improve disease control Activity Recommendations Activity Limitations: resume your previous activity . Instructions / Follow-Up Instructions / Follow-Up You were admitted to [facility] due to sharp chest pain maloney occurred after you exited your car. Below are the medical problems addressed during your stay here: 1) Chest pain - we checked a troponin level, which measures damage to your heart, and this was normal - your EKG (electrical tracing of your heart), was normal - this pain was felt to be muscular in origin, and not related to your heart - we recommend you use Tylenol, the voltaren gel, and the lidocaine patch as needed for your pain - please follow up with your primary care provider about better managing your pain 2) Atrial fibrillation - while you were here, you had an episode of atrial fibrillation, which is an irregular heartbeat - atrial fibrillation can put you at risk for having a stroke in the future and therefore we are starting you on 2 medications. These are: - metoprolol - this is a low dose medication called a beta-claudia, which works to slow your heart rate down. As we discussed, if you have problems where you go from lying down to standing, and that makes you feel dizzy, please let your primary care doctor know. Otherwise, this is generally a well tolerated medication and we have started you on a low dose of it - xarelto - this is a blood thinner, to help prevent clots from forming in your heart and potentially causing a stroke. Please try and avoid taking other medications that thin your blood, such as ibuprofen. 3) Urinary Tract Infection - your urine grew a bacteria called e.coli, which is very common in urinary tract - you were initially treated with IV medications and we will be sending you home on 6 days of oral antibiotics 4) Thrush - you also have thrush, which is a fungal infection that occurs in the mouth - please continue to take the clotrimazole and fluconazole for this 5) T10 Compression Fracture - as we discussed, you have a fracture in the vertebrae around your spinal cord , this is likely due to your steroid use and we recommend decreasing your steroid use as much as possible - please discuss this with your vacuum cleaner repairer You may continue taking all your home medications as prescribed. If the chest pain worsens, you feel short of breath, nauseous or sweaty, please seek medical attention. Current Hospital Diet Patient's current hospital diet: AHA Diet (Heart Healthy) Discharge Diet Recommended Diet: AHA Diet (Heart Healthy) Pending Studies Studies pending at discharge: no Medical Emergencies . Who to Call and When: Medical Emergencies: If at any time you feel your situation is an emergency, please call 911 immediately. . Non-Emergent Contact Non-Emergency issues call your: Primary Care Provider . . "Provider Documentation" section prepared by Jerry Posada. . VTE Core Measure Inpt VTE Proph given/why not?: Other Anticoagulation, SCD's
--- NOTE | 2017-03-13 14:15 | Discharge Summary ---
Discharge Summary Date of Service Mar 13, 2017. Discharge Summary Admission Date: Mar 11, 2017 at 22:15 Discharge Date: Mar 13, 2017 Discharge Disposition: Home Principal Diagnosis: Chest Pain Problems/Secondary Diagnoses: 1) Atrial fibrillation 2) UTI 3) Polymyalgia Rheumatica 4) T10 Compression Fracture 5) Thrush Immunizations: Have You Had Influenza Vaccine: Unknown History of Tetanus Vaccine?: Unknown History of Pneumococcal: Unknown History of Hepatitis B Vaccine: Unknown Procedures: CHEST ONE VIEW PORTABLE HISTORY: Atypical Chest Pain COMPARISON: Thoracic spine 01/10/2017. FINDINGS: No pleural fusions. No pneumothorax. The heart is normal in size. Mild interstitial thickening at the lungs is likely chronic. Elevation the left hemidiaphragm, unchanged. No new focal lung consolidations. No evidence for pulmonary edema. IMPRESSION: No significant change compared to the prior study. No acute process. CHEST CTA for PULMONARY ARTERIES CT DOSE: 283.01 mGy.cm HISTORY: Elevated d-dimer. Atypical chest pain. TECHNIQUE: Multiaxial CT images of the chest were performed following the intravenous administration of contrast to evaluate the pulmonary arteries. Maximal intensity projection images were also obtained. A dose lowering technique was utilized adhering to the principles of ALARA. COMPARISON STUDY: None. FINDINGS: Moderate compression fractures at T4 and T10. The T4 compression fracture is stable and likely old. The T10 compression fracture has progressed from the 01/10/2017 radiograph. Therefore, this is consistent with an acute to subacute fracture. There is mild surrounding paravertebral edema. There is mild manubrial deformity suggestive of an old fracture. The visualized liver, spleen, and adrenal glands are unremarkable. A 6.3 cm cyst within the upper pole the right kidney. The heart is borderline enlarged. No pleural or pericardial effusions. No mediastinal or hilar lymphadenopathy. The thyroid gland enhances normally. No pneumothorax. The central airways are patent. Small bibasilar densities suggest subsegmental atelectasis. No focal lung consolidations to suggest pneumonia. Mild emphysema. Normal caliber thoracic aorta with no evidence for dissection. Nondiagnostic evaluation of the majority of the bilateral lower lobe and right middle lobe segmental and subsegmental arteries due to the respiratory motion artifact. Otherwise, the remaining pulmonary arteries show no filling defects to suggest pulmonary metastases. IMPRESSION: 1. No evidence for pulmonary embolus with limitations as described above. 2. Acute to subacute T10 compression fracture. 3. Mild emphysema. 4. Additional findings as described above. ECHO: - Left ventricular systolic function is low normal. - Right ventricular systolic pressure is elevated at 30-40mmHg. - Grade I diastolic dysfunction, (abnormal relaxation pattern). - EF = 50-55% Medication Reconciliation New Medications: Fluconazole (Diflucan) 200 Mg Tab 1 TAB PO DAILY for 5 Days, #5 TAB Lidocaine (Lidocaine) 5 % Pad 1 PATCH TD UD for 15 Days, #15 PATCH 2 Refills Apply 1 patch over affected area for up to 12 hours a day. Nitrofurantoin Monohyd Macrocr (Macrobid) 100 Mg Cap 100 MG PO BID for 6 Days, #12 CAP Clotrimazole (Clotrimazole) 1 Cynthia Troc 1 CYNTHIA MT [id number] for 5 Days, #25 CYNTHIA Diclofenac Sod (Voltaren) 100 Appln/100 Gm Gel 1 APPLN EXT TID PRN for Pain for 15 Days, #1 TUBE 2 Refills Metoprolol Tartrate (Lopressor) 25 Mg Tab 12.5 MG PO BID for 30 Days, #30 TAB 3 Refills Rivaroxaban (Xarelto) 20 Mg Tab 20 MG PO DAILY@1800 for 30 Days, #30 TAB 3 Refills Continued Medications: Lorazepam (Lorazepam) 1 Mg Tab 0.5 MG PO BID PRN for Muscle Spasms Prednisone (Prednisone) 5 Mg Tab 10 MG PO DAILY Discontinued Medications: Ibuprofen (Advil) 200 Mg Tab 200-600 MG PO Q4H PRN for Pain, TAB Discharge Exam Ms. Campbell reports she feels better today. She states she occasionally feels the spasms occur in her chest and back on movement, but is able to walk without pain. She denies shortness of breath, and states her urinary symptoms are improving. She states she has a history of paroxysmal atrial fibrillation and has had this for years, but was never placed on medication for it. Review of Systems: Constitutional: No fever, No chills Respiratory: No cough, No sputum, No wheezing, No shortness of breath, No dyspnea on exertion Cardiovascular: + chest pain, No orthopnea, No PND, No edema, No claudication Abdomen: No pain, No nausea, No vomiting, No diarrhea, No constipation Musculoskeletal: + muscle pain (chest and back) Hospital Course Ms. Campbell is a 76 year old female with a past medical history of PMR on Prednisone who presented with a 30 min history of chest pain on 03/11. Chest Pain - Trop negative x 4, CTA normal - EKG without acute ischemic changes, ECHO findings as above - Lipase wnl - ESR elevated at 22 - likely musculoskeletal (?costochondritis) given pain is with movement, and able to be reproduced - advised tylenol, voltaren gel and lidocaine patches for pain - recommend follow up with PCP to ensure adequate control and resolution of pain Asymptomatic Afib - 03/12 - 1 episode Afib in 130s-140s converted to sinus 60s with Lopressor 25mg PO and Digoxin 250 mcg IV - TSH and electrolytes wnl - discussed extensively with patients and given CHADS-VASc score of 2, she would benefit from anticoagulation - Started on metoprolol 12.5mg BID - Started on Xarelto 20mg daily for anticoagulation UTI - urine culture grew e.coli, sensitivities pending - treated with Rocephin IV 1g Q24H - discharged on 6 days of macrobid New Oxygen Requirement - Desatted to 87% when oxygen removed - resolved on discharge - was likely due to inadequate breathing given chest and back pain Polymyalgia Rheumatica - Initially on Prednisone 60mg - tapered to 10mg - was given stress dose of 20mg daily in hospital - discharged on 10mg daily Oral Thrush, likely from Chronic Prednisone Use - continue Clotrimazole troch 5x/day and Fluconazole 200mg QAM. T10 Compression Fracture, likely from chronic prednisone use - advise decreasing prednisone in outpatient setting Resident Physician Supervision Note: I interviewed and examined the patient. Discussed with Dr. Jerry Posada and agree with findings and plan as documented in the note. Any exceptions or clarifications are listed here: None This pt is doing well, it seems her chest pain is musculoskeletal and her back pain has been better controlled since being here, she does have a E coli uti and did have runs of afib in the hospital, now seems to be in controlled rate. We did discuss anticoagulation with her and although she has concerns about needing ibuprofen she is in agreement to use xarelto to reduce her embolic stroke risk, we will start her on Xarelto vitals are stable she is rate controlled rate seems regular but she looks to be in afib on monitor lungs are clear continue to explore pain control doubt is acs e coli uti continues rocephin Documented By: Shaggy Martin Total Time Spent: Greater than 30 minutes This includes examination of the patient, discharge planning, medication reconciliation, and communication with other providers. Discharge Instructions Please refer to the electronic Patient Visit Report (Discharge Instructions) for additional information. Additional Copies To Jonelle Samuels, [email or web address]. Resident Tracking Resident Involvement: Resident Care Provided Care Provided: Adult [facility]
[2017-03-13 14:29] VITALS: BP 116/61; PULSE 72; TEMP 37; O2SAT 96
--- NOTE | 2017-03-13 16:50 | ECHOCARDIOGRAM REPORT ---
*NOTICE TO RECEIVING DEMOCRAT AGENCY This information is strictly Confidential and protected under [place] law. [place] law prohibits you from making any further disclosure of this information unless further disclosure is expressly permitted by the written consent of the person to whom it pertains or is authorized by law. A general authorization for the release of medical or other information is not sufficient for this purpose. Hospital accepts no responsibility if the information is made available to any other person, INCLUDING THE PATIENT. Interpretation Summary * Name: ROSIBEL DOMINGUEZ Study Date: 03/13/2017 08:44 AM BP: 121/60 mmHg * Patient Location: .2T\S\E222\S\1 HR: 80 * : 1940 (M/d/yyyy) Gender: Female Height: 60 in * Age: 76 yrs Ethnicity: CA Weight: 154 lb * Ordering Physician: Kaleigh Deluca * Referring Physician: Self, Referred * Performed By: Camille Garcia RDCS * * Reason For Study: Atrial Fibrillation * BSA: 1.7 m2 * -- Conclusions -- * Left ventricular systolic function is low normal. * Right ventricular systolic pressure is elevated at 30-40mmHg. * Grade I diastolic dysfunction, (abnormal relaxation pattern). Procedure Details * A complete two-dimensional transthoracic echocardiogram was performed (2D, M-mode, Doppler and color flow Doppler). Left Ventricle * The left ventricle is normal in size. * There is normal left ventricular wall thickness. * Ejection Fraction = 50-55%. * Left ventricular systolic function is low normal. * Grade I diastolic dysfunction, (abnormal relaxation pattern). * The left ventricular wall motion is normal. Right Ventricle * The right ventricle is normal in size and function. * The right ventricular systolic function is normal as assessed by tricuspid annular plane systolic excursion (TAPSE) (normal >1.5 cm). Atria * The left atrial size is normal. * Right atrial size is normal. Mitral Valve * The mitral valve anatomy is normal. * Significant mitral regurgitation is absent. Tricuspid Valve * The tricuspid valve is not well visualized, but is grossly normal. * There is mild tricuspid regurgitation. * Right ventricular systolic pressure is elevated at 30-40mmHg. Aortic Valve * The aortic valve is normal in structure and function. * The aortic valve is trileaflet. * No hemodynamically significant valvular aortic stenosis. * No aortic regurgitation is present. Great Vessels * The aortic root is normal size. Pericardium/Pleural * There is no pericardial effusion. MMode 2D Measurements and Calculations IVSd 1.1 cm IVSs 1.6 cm LVIDd 4.1 cm LVIDs 2.9 cm LVPWd 1.2 cm LVPWs 1.3 cm IVS/LVPW 0.87 FS 30.2 % EDV(Teich) 73.9 ml ESV(Teich) 31.1 ml EF(Teich) 57.9 % EDV(cubed) 68.6 ml ESV(cubed) 23.4 ml EF(cubed) 65.9 % % IVS thick 52.0 % % LVPW thick 8.3 % LV mass(C)d 158.6 grams LV mass(C)dI 94.9 grams/m\S\2 LV mass(C)s 142.6 grams LV mass(C)sI 85.4 grams/m\S\2 SV(Teich) 42.8 ml SI(Teich) 25.6 ml/m\S\2 SV(cubed) 45.2 ml SI(cubed) 27.1 ml/m\S\2 Ao root diam 2.8 cm Ao root area 6.4 cm\S\2 ACS 2.1 cm LA dimension 3.7 cm LA/Ao 1.3 LVAd ap4 35.2 cm\S\2 LVLd ap4 9.1 cm EDV(MOD-sp4) 113.3 ml EDV(sp4-el) 116.0 ml LVAs ap4 21.6 cm\S\2 LVLs ap4 7.7 cm ESV(MOD-sp4) 53.1 ml ESV(sp4-el) 51.8 ml EF(MOD-sp4) 53.2 % EF(sp4-el) 55.3 % LVAd ap2 27.9 cm\S\2 LVLd ap2 8.2 cm EDV(MOD-sp2) 79.7 ml EDV(sp2-el) 80.3 ml LVAs ap2 17.6 cm\S\2 LVLs ap2 7.4 cm ESV(MOD-sp2) 37.2 ml ESV(sp2-el) 35.9 ml EF(MOD-sp2) 53.3 % EF(sp2-el) 55.3 % LVLd %diff -10.47 % EDV(MOD-bp) 99.9 ml LVLs %diff -4.14 % ESV(MOD-bp) 45.8 ml EF(MOD-bp) 54.1 % SV(MOD-sp4) 60.3 ml SI(MOD-sp4) 36.1 ml/m\S\2 SV(MOD-sp2) 42.5 ml SI(MOD-sp2) 25.4 ml/m\S\2 SV(MOD-bp) 54.1 ml SI(MOD-bp) 32.4 ml/m\S\2 SV(sp4-el) 64.2 ml SI(sp4-el) 38.4 ml/m\S\2 SV(sp2-el) 44.4 ml SI(sp2-el) 26.6 ml/m\S\2 Doppler Measurements and Calculations MV E max veronique 85.2 cm/sec MV A max veronique 100.3 cm/sec MV E/A 0.85 MV dec time 0.25 sec Ao V2 max 148.3 cm/sec Ao max PG 8.8 mmHg Ao max PG (full) 2.6 mmHg LV V1 max PG 6.2 mmHg LV V1 max 124.7 cm/sec PA V2 max 105.3 cm/sec PA max PG 4.4 mmHg PI max veronique 198.4 cm/sec PI max PG 15.8 mmHg PI dec slope 242.3 cm/sec\S\2 PI P1/2t 239.9 msec TR max veronique 256.2 cm/sec
== END 2017-03-13 15:00 | disposition home or self-care (01) ==
LOC: C.EDB 17:27 → C.2T 22:15 → ENRESERV 22:24
PROVIDERS: ADMIT Hospitalist; ATTEND Family Medicine
DX: R07.2 Precordial pain (principal); S22.000A Wedge compression fracture of unspecified thoracic vertebra, initial encounter for closed fracture; I48.91 Unspecified atrial fibrillation; B37.0 Candidal stomatitis; N39.0 Urinary tract infection, site not specified; M35.3 Polymyalgia rheumatica; Z87.891 Personal history of nicotine dependence; Z82.49 Family history of ischemic heart disease and other diseases of the circulatory system; Z88.0 Allergy status to penicillin; Z88.2 Allergy status to sulfonamides; X58.XXXA Exposure to other specified factors, initial encounter; Z79.82 Long term (current) use of aspirin

== ENCOUNTER → 2017-04-07 | Outpatient (CLI) | payer BC ==
[~2017-04-07] MED LIST changes: -DIAZ-165 PO; +FLUC200T PO; +LIDO1PAD2 TD; +LORA1TAB13 PO; +LPR25 PO; +MYC10 MT; +NITR-5 PO; +VLTG EXT; +XRL20 PO
== END | disposition home or self-care (01) ==
LOC: C.LAB1850 13:21
PROVIDERS: ATTEND Internal Medicine Rheumatology
DX: M19.90 Unspecified osteoarthritis, unspecified site (principal); E55.9 Vitamin D deficiency, unspecified; E61.8 Deficiency of other specified nutrient elements

== ENCOUNTER → 2017-05-15 | Outpatient (CLI) | payer BC | END | disposition home or self-care (01) | LOC: C.LAB1850 13:19 | PROVIDERS: ATTEND Internal Medicine Rheumatology | DX: M35.3 Polymyalgia rheumatica (principal); M81.8 Other osteoporosis without current pathological fracture; S22.000A Wedge compression fracture of unspecified thoracic vertebra, initial encounter for closed fracture; X58.XXXA Exposure to other specified factors, initial encounter ==

== ENCOUNTER → 2017-10-23 | Outpatient (CLI) | payer BC | END | disposition home or self-care (01) | LOC: C.LAB1850 10:51 | PROVIDERS: ATTEND Internal Medicine Rheumatology | DX: M35.3 Polymyalgia rheumatica (principal); M81.8 Other osteoporosis without current pathological fracture; E55.9 Vitamin D deficiency, unspecified; T38.0X5A Adverse effect of glucocorticoids and synthetic analogues, initial encounter ==